=== PATIENT | female | born 1935 | race Two or more races ===

== ENCOUNTER → 2017-05-24 | Outpatient (CLI) | payer MEDICARE, MEDICAID ==
--- NOTE | 2017-05-24 15:25 | RADIOLOGY REPORT (SQ) ---
EXAM DESCRIPTION: U/S RETROPERITON (RENAL/AORTA) COMPLETED DATE/TIME: 05/24/2017 3:12 pm REASON FOR STUDY: ABN KIDNEY FUNCTION R94.4 ABNORMAL RESULTS OF KIDNEY FUNCTION STUDIES COMPARISON: None. TECHNIQUE: Dynamic and static grayscale images acquired of the kidneys and bladder and recorded on P ACS. Additional selected color Doppler and spectral images recorded. LIMITATIONS: None. FINDINGS: RIGHT KIDNEY: 7 cm in length with diffuse cortical thinning and mild increased echogenicit y. No solid or suspicious masses. No hydronephrosis. No calcifications. LEFT KIDNEY: 7 cm in length with diffuse cortical thinning and mild increased echogenicity. No solid or suspicious masses. No hydronephrosis. No calcifications. BLADDER: No masses. OTHER FINDINGS: No other significant finding. IMPRESSION: Small kidneys with diffuse cortical thinning and increased echogenicity TECHNICAL DOCUMENTATION: JOB ID: [id number] [employer]- All Rights Reserved
== END ==
LOC: RAD 15:08
PROVIDERS: ATTEND Internal Medicine
DX: R94.4 Abnormal results of kidney function studies (principal)
CPT/HCPCS: 76770

== ENCOUNTER → 2017-09-16 | Outpatient (CLI) | payer MEDICARE, MEDICAID ==
--- NOTE | 2017-09-16 17:17 | RADIOLOGY REPORT (SQ) ---
EXAM DESCRIPTION: LUMBAR SPINE COMPLETE COMPLETED DATE/TIME: 09/16/2017 4:39 pm REASON FOR STUDY: LOW BACK PAIN M54.5 LOW BACK PAIN COMPARISON: None. NUMBER OF VIEWS: Five views including obliques. TECHNIQUE: AP, lateral, oblique, and sacral radiographic images acquired of the lumbar spine. LIMITATIONS: None. FINDINGS: MINERALIZATION: Normal. SEGMENTATION: Normal. No transitional anatomy. ALIGNMENT: Minimal convex right curve. Minimal grade 1 listhesis is suggested at L4-5 and possibly L 5-S1. VERTEBRAE: Maintained height. No fracture or worrisome bone lesion. DISCS: Mild disc space narrowing at several levels. Most pronounced at L1-2. No bulky osteophytes. POSTERIOR ELEMENTS: Lower lumbar facet degenerative overgrowth. No pars defect, fracture or bone les ion evident. HARDWARE: None in the spine. PARASPINAL SOFT TISSUES: Moderate stool. No paraspinal pathology otherwise suggested. PELVIS: Intact as visualized. No fractures or worrisome bone lesions. SI joints intact. OTHER: No other significant finding. IMPRESSION: Lumbar spondylosis. No fracture or worrisome bone lesion. TECHNICAL DOCUMENTATION: JOB ID: [id number] [employer]- All Rights Reserved
== END ==
LOC: OD 16:01
PROVIDERS: ATTEND Internal Medicine
DX: M54.5 Low back pain (principal); M47.896 Other spondylosis, lumbar region
CPT/HCPCS: 72110

== ENCOUNTER → 2017-11-13 | Outpatient (CLI) | payer MEDICARE, MEDICAID ==
--- NOTE | 2017-11-13 15:49 | RADIOLOGY REPORT (SQ) ---
EXAM DESCRIPTION: CT ABD/PELVIS NO ORAL OR IV COMPLETED DATE/TIME: 11/13/2017 1:55 pm REASON FOR STUDY: PERIUMBILIC SWELLING, MASS OR LUMP (R19.05) R19.05 PERIUMBILIC SWELLING, MASS OR LUMP COMPARISON: Lumbar spine films 09/16/2017 TECHNIQUE: CT scan of the abdomen and pelvis performed without intravenous or oral contrast. Images reviewed with lung, soft tissue, and bone windows. Reconstructed coronal and sagittal MPR images revi ewed. All images stored on PACS. All CT scanners at this facility use dose modulation, iterative reconstruction, and/or weight based d osing when appropriate to reduce radiation dose to as low as reasonably achievable (ALARA). [facility]: Dose Right [facility]: CareDose [facility]: Dose Right [facility]: Teradose 4D [facility]: Smart [employer] RADIATION DOSE: CT Rad equipment meets quality standard of care and radiation dose reduction techniq ues were employed. CTDIvol: 6.3 mGy. DLP: 294 mGy-cm.mGy. LIMITATIONS: None. FINDINGS: The patient has a small fat containing umbilical hernia best shown on sagittal reconstruct ion image 41. LOWER CHEST: Aortic valve replacement, calcified coronary arteries and mitral annulus. Trace pericar dial effusion. Mild cardiomegaly. Lung bases are clear. NON-CONTRASTED LIVER, SPLEEN, ADRENALS: Evaluation limited by lack of IV contrast. No identified sign ificant masses. PANCREAS: No masses. No peripancreatic inflammatory changes. GALLBLADDER: Gallstones. No inflammatory changes to suggest cholecystitis. RIGHT KIDNEY AND URETER: No suspicious masses. Assessment limited by lack of IV contrast. Tiny 2 mm right midpole intrarenal nonobstructive stone. No hydronephrosis or hydroureter. LEFT KIDNEY AND URETER: No suspicious masses. Assessment limited by lack of IV contrast. No signifi cant calcifications. No hydronephrosis or hydroureter. AORTA AND RETROPERITONEUM: No aneurysm. No retroperitoneal masses or adenopathy. BOWEL AND PERITONEAL CAVITY: There is a 7 cm long segment of wall thickening, luminal narrowing and s urrounding stranding in the adjacent pericolic fat along the distal transverse colon, best shown on c oronal images 25-30 and sagittal images 54-60. This could represent a short segment of colitis. Wal l thickening and luminal narrowing could be seen in malignancy. Consider colonoscopy for further winston luation. Descending colon diverticuli without CT signs of acute diverticulitis. No CT evidence of bowel obstr uction or free intraperitoneal air or fluid. APPENDIX: Normal. PELVIS, BLADDER, AND ABDOMINAL WALL:No abnormal masses. No free fluid. Bladder normal. Post hysterec pierre BONES: Subacute L2 upper endplate compression with 25% loss of height, new compared to plain films fr om 09/16/2017 OTHER: No other significant finding. IMPRESSION: Small umbilical hernia Short segment of colon wall thickening and luminal narrowing, distal transverse colon. Although this could represent inflammatory change, this could also represent a colon malignancy. Upper endplate L2 subacute compression deformity COMMENT: Quality ID # [id number]: Final reports with documentation of one or more dose reduction techniques (e.g., Automated exposure control, adjustment of the mA and/or kV according to patient size, use of iterative reconstruction technique) TECHNICAL DOCUMENTATION: JOB ID: [id number] [employer]- All Rights Reserved Reading location - IP/workstation name: [email or web address]
== END ==
LOC: RAD 13:32
PROVIDERS: ATTEND Internal Medicine
DX: K42.9 Umbilical hernia without obstruction or gangrene (principal); K57.30 Diverticulosis of large intestine without perforation or abscess without bleeding
CPT/HCPCS: 74176

== ENCOUNTER 2018-02-18 15:23 | Day surgery (SDC) | payer MEDICARE, MEDICAID ==
[2018-02-18] MEDS ORDERED: ONDANSETRON HCL INJ/PF 4 MG/2 ML SDV ONE (15:49)
[2018-02-18] MEDS ORDERED: DIPHENHYDRAMINE HCL 50 MG/ML VIAL ONE (15:49)
[2018-02-18] MEDS ORDERED: NALOXONE HCL INJ/PF 0.4 MG/1 ML SDV ONE (15:50)
[2018-02-18] MEDS ORDERED: FLUMAZENIL INJ 0.5 MG/5 ML VIAL ONE (15:51)
[2018-02-18] MEDS ORDERED: GLUCAGON,HUMAN RECOMB 1 MG INJ ONE (15:51)
[2018-02-18] MEDS ORDERED: EPINEPHRINE INJ 1 MG/10 ML DISP.SYRIN ONE (15:51)
[2018-02-18] MEDS: MIDAZOLAM 2 MG/2 ML INJ ONE ×3 (16:34→16:55)
[2018-02-18] MEDS: FENTANYL CITRATE INJ/PF 100 MCG/2 ML AMPUL ONE ×2 (16:42→17:05)
--- NOTE | 2018-02-18 17:35 | Operative Report ---
Operative Report DATE OF SURGERY: 02/18/18 Operative Report: Pre-op diagnosis: History of ischemic colitis and stricture Post-op diagnosis: 1. Transverse colon stricture status post dilation 2. Left-sided diverticulosis Surgery: Colonoscopy to ascending colon with balloon dilation Medications: Versed 2mg, Fentanyl 75mcg IV push Tissue removed: None Procedure: After informed consent obtained from patient, conscious sedation was achieved. A digital rectal examination was performed and this was unremarkable. The upper endoscope was inserted into the rectum and advanced to the mid ascending colon. The mucosa was examined into details as the colonoscope was slowly pulled out of the patient. The endoscope was retroflexed in the rectum. Patient tolerated the procedure well. Findings I could not advance to the cecum due to redundancy and use of an EGD scope. Patient had multiple diverticuli with spasm in the sigmoid colon. Ascending colon: Normal Transverse colon: The stricture was identified in the mid to distal transverse colon with no evidence of active colitis. There was scarring noted in the transverse colon and the descending colon presumably from previous ischemic colitis. There was minimal difficulty passing the 9 mm though EGD scope. The stricture was then dilated with the balloon up to 11 mm. Descending colon: Multiple diverticuli Sigmoid colon: Multiple diverticuli with spasm and redundant colon Rectum: Normal except for internal hemorrhoids Plan: Keep patient on a low residue diet. OPERATION: .
[2018-02-18 18:37] VITALS: BP 152/50
== END 2018-02-18 18:30 | disposition home or self-care (01) ==
LOC: END 15:23
PROVIDERS: ATTEND Internal Medicine Gastroenterology
PROC: 0D7L8ZZ Dilation of Transverse Colon, Via Natural or Artificial Opening Endoscopic (ICD-10-PCS; principal; 2018-02-18 15:30)
DX: K56.699 Other intestinal obstruction unspecified as to partial versus complete obstruction (principal); K57.30 Diverticulosis of large intestine without perforation or abscess without bleeding; K58.9 Irritable bowel syndrome, unspecified; K64.8 Other hemorrhoids; E11.9 Type 2 diabetes mellitus without complications; Z95.2 Presence of prosthetic heart valve; Z86.73 Personal history of transient ischemic attack (TIA), and cerebral infarction without residual deficits
CPT/HCPCS: 45378; 82962; 45386; C1726; J2250; J3010; J0171; J1200; J1610; J2310; J2405; J3490

== ENCOUNTER 2018-05-13 18:08 | Inpatient (IN) | payer MEDICARE, MEDICAID ==
--- NOTE | 2018-05-13 18:33 | ER Document Report ---
ED General - General Chief Complaint: S/S of Possible Stroke Stated Complaint: WEAKNESS Time Seen by Provider: 05/13/18 18:32 Notes: Patient is a 83-year-old female that presents to the emergency department for chief complaint of right arm weakness. History provided by both the patient and the patient's daughter is at bedside. According to the daughter she was last seen normal around 11 or 12 this morning, she ate her breakfast, and that she went outside. And then around 130 or 2 PM, she told her daughter that she was feeling weak and she could not lift both her arms. She went to check on her , and she in fact was having difficulty lifting both her arms. 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 She called 911 at that time , EMS arrived, and at that time her symptoms seemed improved, they did give the option to bring her to the emergency department however the patient elected to stay home. The patient then had a recurrence of weakness in her right hand, and was having difficulty eating her dinner so they decided to bring her to the emergency department. She does have a history of diabetes and hypertension, denies history of strokes or TIAs in the past. She did not have any slurred speech or difficulty speaking, weakness in her leg, or facial droop. At this time she denies having any headaches, chest pain, shortness of breath, nausea, vomiting or visual changes. Past Medical History: Diabetes mellitus, hypertension, aortic stenosis status post TAVR Past Surgical History: T AVR, hysterectomy Social History: Denies tobacco, alcohol or drug use Family History: Reviewed and noncontributory for presenting illness Allergies: Reviewed, see documented allergy list. REVIEW OF SYSTEMS: Unless otherwise stated in this report the patient's positive and negative responses for review of systems for constitutional, eyes, ENT, cardiovascular, respiratory, gastrointestinal, neurological, genitourinary, musculoskeletal, and integumentary systems and related systems to the presenting problem are either as stated in the HPI or were not pertinent or were negative for the symptoms and/or complaints related to the presenting medical problem. PHYSICAL EXAMINATION: Vital signs reviewed, nursing noted reviewed. GENERAL: Elderly female, and in no acute distress. HEAD: Atraumatic, normocephalic. EYES: Eyes appear normal, extraocular movements intact, sclera anicteric, conjunctiva are normal. ENT: nares patent, oropharynx clear without exudates. Moist mucous membranes. NECK: Normal range of motion, supple without lymphadenopathy LUNGS: Breath sounds clear to auscultation bilaterally and equal. No wheezes rales or rhonchi. HEART: Regular rate and rhythm without murmurs ABDOMEN: Soft, nontender, normoactive bowel sounds. No rebound, guarding, or rigidity. No masses appreciated. EXTREMITIES: Nontender, good range of motion, no pitting or edema. 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 No facial droop, no aphasia, no dysarthria, visual ryan intact, no gaze palsies. Moves all extremities spontaneously Motor and sensory grossly intact on exam. PSYCH: Normal mood, normal affect. SKIN: Warm, Dry, normal turgor, no rashes or lesions noted on exposed skin TRAVEL OUTSIDE OF THE [place] IN LAST 30 DAYS: No - Related Data Allergies/Adverse Reactions: No Known Allergies Allergy (Verified 02/18/18 15:44) Past Medical History - Social History Smoking Status: Never Smoker Family History: Reviewed & Not Pertinent - Past Medical History Cardiac Medical History: Denies: Hx Coronary Artery Disease, Hx Heart Attack, Hx Hypertension Pulmonary Medical History: Denies: Hx Asthma, Hx Bronchitis, Hx COPD, Hx Pneumonia Neurological Medical History: Denies: Hx Cerebrovascular Accident, Hx Seizures GI Medical History: Denies: Hx Hepatitis, Hx Hiatal Hernia, Hx Ulcer Musculoskeletal Medical History: Reports Hx Arthritis Infectious Medical History: Denies: Hx Hepatitis Past Surgical History: Reports: Hx Hysterectomy. Denies: Hx Mastectomy, Hx Open Heart Surgery, Hx Pacemaker - Immunizations Hx Diphtheria, Pertussis, Tetanus Vaccination: No Hx Pneumococcal Vaccination: 05/12/17 Physical Exam - Vital signs Vitals: Temp Pulse Resp BP Pulse Ox 97.5 F 64 20 186/69 H 100 05/13/18 18:15 05/13/18 18:15 05/13/18 18:15 05/13/18 18:15 05/13/18 18:15 Course - Re-evaluation Re-evalutation: Patient seen and examined vital signs reviewed. Laboratory data and imaging were ordered as appropriate for the patient's presenting symptoms and complaint, with consideration of any critical or life threatening conditions that may be associated with their obtained history and exam as noted above. Patient was treated with aspirin Results were reviewed when available and demonstrated CT negative for acute intracranial hemorrhage, or large CVA, blood work demonstrated mild leukocytosis , likely acute phase stress reaction, she had borderline hyperkalemia, most noted was the patient had a troponin of 0.117, will trend this, and advised the admitting physician. The patient was re-evaluated and was stable, no further neurological deficits Evaluation was most consistent with acute CVA, with right hand weakness, The patient is not a TPA candidate given that she was last seen normal around 11 AM this morning, and her symptoms are very mild, and improving. Results were discussed with the patient at this point after careful consideration I feel that that patient should be admitted to the hospital. This was discussed with the patient that it is in the best interest for their care to be admitted for further evaluation and management. Patient agreed with this plan of care. A call was placed to the admitted physician, Dr. Rodrigues who graciously accepted the patient onto their service. *Note is created using voice recognition software and may contain spelling, syntax or grammatical errors. Laboratory 05/13/18 05/13/18 05/13/18 18:37 18:37 18:37 WBC 9.3 RBC 4.32 Hgb 11.5 L Hct 35.3 L MCV 82 MCH 26.5 L MCHC 32.4 RDW 15.8 H Plt Count 219 Seg Neutrophils % 56.1 Lymphocytes % 33.8 Monocytes % 6.0 Eosinophils % 3.3 Basophils % 0.8 Absolute Neutrophils 5.2 Absolute Lymphocytes 3.1 Absolute Monocytes 0.6 Absolute Eosinophils 0.3 Absolute Basophils 0.1 PT 13.7 INR 1.00 APTT 29.1 Sodium 140.7 Potassium 5.3 H Chloride 103 Carbon Dioxide 28 Anion Gap 10 BUN 23 H Creatinine 1.42 H Est GFR ( Amer) 43 L Est GFR (Non-Af Amer) 35 L Glucose 109 POC Glucose Calcium 9.7 Total Bilirubin 0.6 Direct Bilirubin 0.4 Neonat Total Bilirubin Not Reportable Neonat Direct Bilirubin Not Reportable Neonat Indirect Bili Not Reportable AST 23 ALT 21 Alkaline Phosphatase 69 Creatine Kinase 64 CK-MB (CK-2) Troponin I Total Protein 8.5 H Albumin 4.3 05/13/18 05/13/18 18:37 18:42 WBC RBC Hgb Hct MCV MCH MCHC RDW Plt Count Seg Neutrophils % Lymphocytes % Monocytes % Eosinophils % Basophils % Absolute Neutrophils Absolute Lymphocytes Absolute Monocytes Absolute Eosinophils Absolute Basophils PT INR APTT Sodium Potassium Chloride Carbon Dioxide Anion Gap BUN Creatinine Est GFR ( Amer) Est GFR (Non-Af Amer) Glucose POC Glucose 98 Calcium Total Bilirubin Direct Bilirubin Neonat Total Bilirubin Neonat Direct Bilirubin Neonat Indirect Bili AST ALT Alkaline Phosphatase Creatine Kinase CK-MB (CK-2) 1.18 Troponin I 0.117 Total Protein Albumin Chest X-Ray 05/13/18 18:17 IMPRESSION: NO ACUTE RADIOGRAPHIC FINDING IN THE CHEST. Head CT 05/13/18 18:17 IMPRESSION: MILD CHRONIC CHANGES OF ATROPHY AND MICROVASCULAR ISCHEMIA. NO ACUTE PROCESS. EVIDENCE OF ACUTE STROKE: NO. - Vital Signs Vital signs: Temp Pulse Resp BP Pulse Ox 97.6 F 58 L 20 128/62 H 100 05/13/18 23:22 05/14/18 02:00 05/14/18 00:00 05/14/18 00:00 05/14/18 00:00 - Laboratory Result Diagrams: 05/13/18 18:37 05/13/18 18:37 Laboratory results interpreted by me: 05/13/18 05/13/18 18:37 18:37 Hgb 11.5 L Hct 35.3 L MCH 26.5 L RDW 15.8 H Potassium 5.3 H BUN 23 H Creatinine 1.42 H Est GFR ( Amer) 43 L Est GFR (Non-Af Amer) 35 L Total Protein 8.5 H - EKG Interpretation by Me Additional EKG results interpreted by me: EKG demonstrates sinus bradycardia with a ventricular rate of 57 bpm with left axis deviation, normal intervals, there are T wave inversions in lead I and aVL , no ST changes, no prior EKG for comparison. Discharge - Discharge Clinical Impression: Acute CVA (cerebrovascular accident), Right hand weakness Condition: Stable Disposition: ADMITTED INPATIENT Admitting Provider: [facility] Unit Admitted: Telemetry
--- NOTE | 2018-05-13 18:35 | RADIOLOGY REPORT (SQ) ---
EXAM DESCRIPTION: CHEST SINGLE VIEW COMPLETED DATE/TIME: 05/13/2018 6:22 pm REASON FOR STUDY: STROKE LIKE SYMPTOMS COMPARISON: None. EXAM PARAMETERS: NUMBER OF VIEWS: One view. TECHNIQUE: Single frontal radiographic view of the chest acquired. RADIATION DOSE: NA LIMITATIONS: None. FINDINGS: LUNGS AND PLEURA: No opacities, masses or pneumothorax. No pleural effusion. MEDIASTINUM AND HILAR STRUCTURES: No masses. Contour normal. HEART AND VASCULAR STRUCTURES: Vascular stent. No evidence for failure. BONES: No acute findings. HARDWARE: None in the chest. OTHER: No other significant finding. IMPRESSION: NO ACUTE RADIOGRAPHIC FINDING IN THE CHEST. TECHNICAL DOCUMENTATION: JOB ID: [id number] [employer]- All Rights Reserved Reading location - IP/workstation name: [email or web address]
--- NOTE | 2018-05-13 18:37 | RADIOLOGY REPORT (SQ) ---
EXAM DESCRIPTION: CT HEAD WITHOUT COMPLETED DATE/TIME: 05/13/2018 6:27 pm REASON FOR STUDY: STROKE LIKE SYMPTOMS COMPARISON: None. TECHNIQUE: Axial images acquired through the brain without intravenous contrast. Images reviewed wi th bone, brain and subdural windows. Additional sagittal and coronal reconstructions were generated. Images stored on PACS. All CT scanners at this facility use dose modulation, iterative reconstruction, and/or weight based d osing when appropriate to reduce radiation dose to as low as reasonably achievable (ALARA). [facility]: Dose Right [facility]: CareDose [facility]: Dose Right [facility]: Teradose 4D [facility]: Smart [employer] RADIATION DOSE: CT Rad equipment meets quality standard of care and radiation dose reduction techniq ues were employed. CTDIvol: 53.2 mGy. DLP: 1044 mGy-cm. mGy. LIMITATIONS: None. FINDINGS: VENTRICLES: Prominent. CEREBRUM: No masses. No hemorrhage. No midline shift. Areas of low density in the white matter mos t likely due to chronic micro-vascular ischemic change. No evidence for acute infarction. CEREBELLUM: No masses. No hemorrhage. No alteration of density. No evidence for acute infarction. EXTRAAXIAL SPACES: Mild age-related involutional change. No fluid collections. No masses. ORBITS AND GLOBE: No intra- or extraconal masses. Normal contour of globe without masses. CALVARIUM: No fracture. PARANASAL SINUSES: No fluid or mucosal thickening. SOFT TISSUES: No mass or hematoma. OTHER: No other significant finding. IMPRESSION: MILD CHRONIC CHANGES OF ATROPHY AND MICROVASCULAR ISCHEMIA. NO ACUTE PROCESS. EVIDENCE OF ACUTE STROKE: NO. TECHNICAL DOCUMENTATION: JOB ID: [id number] Quality ID # [id number]: Final reports with documentation of one or more dose reduction techniques (e.g., Au tomated exposure control, adjustment of the mA and/or kV according to patient size, use of iterative reconstruction technique) 2010 [employer]- All Rights Reserved Reading location - IP/workstation name: [email or web address]
[2018-05-13 18:46] LABS: ABSOLUTE BASOPHILS # (AUTO) 0.1 10^3/uL (0.0-0.2); ABSOLUTE EOSINOPHILS # (AUTO) 0.3 10^3/uL (0.0-0.6); ABSOLUTE LYMPHOCYTES (AUTO) 3.1 10^3/uL (0.5-4.7); ABSOLUTE MONOCYTES (AUTO) 0.6 10^3/uL (0.1-1.4); ABSOLUTE NEUT (AUTO) 5.2 10^3/uL (1.7-8.2); BASOPHILS % (AUTO) 0.8 % (0-2); EOSINOPHILS % (AUTO) 3.3 % (0-6); HEMATOCRIT 35.3 % (36.0-47.0); HEMOGLOBIN 11.5 g/dL (12.0-15.5); LYMPHOCYTES % (AUTO) 33.8 % (13-45); MEAN CORPUSCULAR HEMOGLOBIN 26.5 pg (27.0-33.4); MEAN CORPUSCULAR HGB CONC 32.4 g/dL (32.0-36.0); MEAN CORPUSCULAR VOLUME 82 fl (80-97); PLATELET COUNT 219 10^3/uL (150-450); RED BLOOD COUNT 4.32 10^6/uL (3.72-5.28); RED CELL DISTRIBUTION WIDTH 15.8 % (11.5-14.0); SEGMENTED NEUTROPHILS % (AUTO) 56.1 % (42-78); TOTAL CELLS COUNTED % (AUTO) 100 %; WHITE BLOOD COUNT 9.3 10^3/uL (4.0-10.5)
[2018-05-13 18:48] LABS: PARTIAL THROMBOPLASTIN TIME 29.1 SEC (23.5-35.8); PROTHROMBIN TIME 13.7 SEC (11.4-15.4)
[2018-05-13 19:06] LABS: ALANINE AMINOTRANSFERASE 21 U/L (9-52); ALBUMIN 4.3 g/dL (3.5-5.0); ALKALINE PHOSPHATASE 69 U/L (38-126); ANION GAP 10 (5-19); ASPARTATE AMINO TRANSFERASE 23 U/L (14-36); BILIRUBIN,DIRECT 0.4 mg/dL (0.0-0.4); BILIRUBIN,TOTAL 0.6 mg/dL (0.2-1.3); BLOOD UREA NITROGEN 23 mg/dL (7-20); CALCIUM 9.7 mg/dL (8.4-10.2); CARBON DIOXIDE 28 mmol/L (22-30); CHLORIDE 103 mmol/L (98-107); CREATINE KINASE 64 U/L (30-135); GLUCOSE 109 mg/dL (75-110); POTASSIUM 5.3 mmol/L (3.6-5.0); SODIUM 140.7 mmol/L (137-145); TOTAL PROTEIN 8.5 g/dL (6.3-8.2)
[2018-05-13 19:18] LABS: CREATINE KINASE MB 1.18 ng/mL (<4.55)
[2018-05-13 19:22] LABS: TROPONIN I 0.117 ng/mL
[2018-05-13] MEDS ORDERED: ASPIRIN 81 MG TABLET, CHEWABLE PO ONE (19:24)
--- NOTE | 2018-05-13 19:40 | EKG REPORT ---
SEVERITY:- ABNORMAL ECG - SINUS RHYTHM LEFT AXIS DEVIATION LVH WITH SECONDARY REPOLARIZATION ABNORMALITY : Confirmed by: Annemarie Montes 13-May-2018 19:39:34
[2018-05-13 21:48] LABS: INTERNATIONAL RATION (INR) 0.98; PROTHROMBIN TIME 13.5 SEC (11.4-15.4)
[2018-05-13 21:49] LABS: PARTIAL THROMBOPLASTIN TIME 29.1 SEC (23.5-35.8)
[2018-05-13] MEDS ORDERED: GLUCAGON,HUMAN RECOMB 1 MG INJ IM PRN (21:49)
[2018-05-13] MEDS ORDERED: DEXTROSE 40% GEL 15 GM TUBE PO PRN ×2 (21:49)
[2018-05-13] MEDS ORDERED: DEXTROSE 50%-WATER 25 GM/50 ML DISP.SYRIN IV PRN ×2 (21:49)
[2018-05-13 22:12] LABS: CREATINE KINASE MB 1.08 ng/mL (<4.55); TROPONIN I 0.11 ng/mL
[2018-05-13] MEDS: ASPIRIN/DIPYRIDAMOLE 25-200 MG 1 CAP.SR CPMP.12HR PO SCH (22:56)
[2018-05-13] MEDS: SIMVASTATIN 40 MG TABLET PO SCH (22:56)
[2018-05-13] MEDS: HEPARIN SOD (PORCINE) 5,000 UNIT/ML 1 ML SYRINGE SUBCUT SCH (22:56)
[2018-05-13] MEDS: NORMAL SALINE 1000 ML 1,000 ML IV PRN (23:06)
--- NOTE | 2018-05-13 23:29 | RADIOLOGY REPORT (SQ) ---
Scherer scale, color flow, and spectral Doppler was performed of the carotid arteries bilaterally. HISTORY: Carotid stenosis, CVA. Right carotid plaque characterization: Mild scattered soft plaque. 1. CCA peak systolic velocity: 76 cm/sec 2. CCA end-diastolic velocity: 15 cm/sec 3. ICA peak systolic velocity: 63 cm/sec 4. ICA end-diastolic velocity: 10 cm/sec 5. Systolic ratio: 0.8 6. Vertebral artery flow: Antegrade and appears normal. Left carotid plaque characterization: Mild scattered plaque. 1. CCA peak systolic velocity: 62 cm/sec 2. CCA end-diastolic velocity: 10 cm/sec 3. ICA peak systolic velocity: 60 cm/sec 4. ICA end-diastolic velocity: 11 cm/sec 5. Systolic ratio: 0.9 6. Vertebral artery flow: Antegrade and appears normal. IMPRESSION: Mild scattered plaque. No evidence for severe stenosis.
[2018-05-14 00:56] LABS: ARTERIAL BLOOD BASE EXCESS 1.1 mmol/L; ARTERIAL BLOOD H2CO3 1.21 mmol/L (1.05-1.35); ARTERIAL BLOOD HCO3 25.6 mmol/L (20-24); ARTERIAL BLOOD O2 SATURATION 95.8 % (94-98); ARTERIAL BLOOD PCO2 40.1 mmHg (35-45); ARTERIAL BLOOD PH 7.42 (7.35-7.45); ARTERIAL BLOOD PO2 78.2 mmHg (80-100); ARTERIAL BLOOD TOTAL CO2 26.8 mmol/L (21-25)
[2018-05-14 01:13] LABS: ARTERIAL BLOOD FIO2 21%
[2018-05-14 01:17] LABS: APPEARANCE,URINE SLIGHTLY-CLOUDY; BILIRUBIN,URINE NEGATIVE (NEGATIVE); COLOR,URINE YELLOW; GLUCOSE, URINE NEGATIVE (NEGATIVE); KETONES,URINE NEGATIVE (NEGATIVE); LEUKOCYTE ESTERASE,URINE NEGATIVE (NEGATIVE); NITRITE,URINE NEGATIVE (NEGATIVE); PROTEIN,URINE 30 mg/dL (NEGATIVE); UROBILINOGEN,URINE NEGATIVE mg/dL (<2.0)
[2018-05-14 03:20] LABS: ABSOLUTE BASOPHILS # (AUTO) 0.1 10^3/uL (0.0-0.2); ABSOLUTE EOSINOPHILS # (AUTO) 0.3 10^3/uL (0.0-0.6); ABSOLUTE LYMPHOCYTES (AUTO) 3.3 10^3/uL (0.5-4.7); ABSOLUTE MONOCYTES (AUTO) 0.4 10^3/uL (0.1-1.4); ABSOLUTE NEUT (AUTO) 3.9 10^3/uL (1.7-8.2); BASOPHILS % (AUTO) 0.8 % (0-2); EOSINOPHILS % (AUTO) 3.8 % (0-6); HEMATOCRIT 32.8 % (36.0-47.0); HEMOGLOBIN 10.7 g/dL (12.0-15.5); LYMPHOCYTES % (AUTO) 41.3 % (13-45); MEAN CORPUSCULAR HEMOGLOBIN 26.6 pg (27.0-33.4); MEAN CORPUSCULAR HGB CONC 32.7 g/dL (32.0-36.0); MEAN CORPUSCULAR VOLUME 81 fl (80-97); MONOCYTES % (AUTO) 5.3 % (3-13); PLATELET COUNT 179 10^3/uL (150-450); RED BLOOD COUNT 4.03 10^6/uL (3.72-5.28); RED CELL DISTRIBUTION WIDTH 15.5 % (11.5-14.0); SEGMENTED NEUTROPHILS % (AUTO) 48.8 % (42-78); TOTAL CELLS COUNTED % (AUTO) 100 %
[2018-05-14 03:42] LABS: ALANINE AMINOTRANSFERASE 15 U/L (9-52); ALBUMIN 3.4 g/dL (3.5-5.0); ALKALINE PHOSPHATASE 60 U/L (38-126); ANION GAP 6 (5-19); ASPARTATE AMINO TRANSFERASE 18 U/L (14-36); BILIRUBIN,DIRECT 0.4 mg/dL (0.0-0.4); BILIRUBIN,TOTAL 0.4 mg/dL (0.2-1.3); BLOOD UREA NITROGEN 25 mg/dL (7-20); CALCIUM 9.1 mg/dL (8.4-10.2); CARBON DIOXIDE 26 mmol/L (22-30); CHLORIDE 107 mmol/L (98-107); CHOLESTEROL 214.66 mg/dL (0-200); GLUCOSE 126 mg/dL (75-110); POTASSIUM 4.5 mmol/L (3.6-5.0); SODIUM 138.7 mmol/L (137-145); TOTAL PROTEIN 6.7 g/dL (6.3-8.2); TRIGLYCERIDES 148 mg/dL (<150)
[2018-05-14 03:53] LABS: CREATINE KINASE MB 1.04 ng/mL (<4.55); DIRECT LDL 137 mg/dL (<100)
[2018-05-14 04:02] LABS: TROPONIN I 0.111 ng/mL
[2018-05-14] MEDS: HEPARIN SOD (PORCINE) 5,000 UNIT/ML 1 ML SYRINGE SUBCUT SCH ×3 (06:48→22:44)
[2018-05-14] MEDS: ASPIRIN/DIPYRIDAMOLE 25-200 MG 1 CAP.SR CPMP.12HR PO SCH ×2 (09:22→22:44)
[2018-05-14 10:33] LABS: CREATINE KINASE MB 1.05 ng/mL (<4.55); TROPONIN I 0.118 ng/mL
--- NOTE | 2018-05-14 11:12 | EKG REPORT ---
SEVERITY:- ABNORMAL ECG - SINUS RHYTHM LEFT AXIS DEVIATION LVH WITH SECONDARY REPOLARIZATION ABNORMALITY : Confirmed by: Annemarie Montes 14-May-2018 11:11:47
--- NOTE | 2018-05-14 12:10 | RADIOLOGY REPORT (SQ) ---
EXAM DESCRIPTION: MRI HEAD WITHOUT COMPLETED DATE/TIME: 05/14/2018 11:55 am REASON FOR STUDY: CVA COMPARISON: CT brain 05/13/2018 TECHNIQUE: Multiplanar imaging includes non-contrasted T1, T2, FLAIR, and diffusion with ADC map seq uences. Images stored on PACS. LIMITATIONS: None. FINDINGS: ANATOMY: No developmental anomalies. Normal vascular flow voids. Pituitary fossa normal. CSF SPACES: Normal in size and contour. No hemorrhage. CEREBRUM: Diffusion-weighted images are positive for punctate nonhemorrhagic infarcts along the left posterior frontal cortex and subcortical white matter along the motor strip and along the left fronta l lobe perisylvian region. These are best shown on diffusion images 15-20. Elsewhere, there is extensive small vessel ischemic change throughout the hemispheres with multiple o ld lacunar infarcts in the basal ganglia and right and left thalamus. POSTERIOR FOSSA: Mild mid pontine chronic small vessel ischemic change. No hemorrhage. No edema, mass es or mass effect. Internal auditory canals, cerebello-pontine angles, mastoids normal. DIFFUSION IMAGING: Diffusion-weighted images are positive for punctate nonhemorrhagic infarcts along the left posterior frontal cortex and subcortical white matter along the motor strip and along the le ft frontal lobe perisylvian region. These are best shown on diffusion images 15-20. ORBITS: No masses. Globes normal. PARANASAL SINUSES: No fluid levels. Mucosa normal. Fluid left mastoid air cells OTHER: No other significant finding. IMPRESSION: Diffusion-weighted images are positive for punctate nonhemorrhagic infarct in the left M CA distribution along the motor strip and perisylvian frontal lobe EVIDENCE OF ACUTE STROKE: Yes TECHNICAL DOCUMENTATION: JOB ID: [id number] [employer]- All Rights Reserved Reading location - IP/workstation name: [email or web address]
--- NOTE | 2018-05-14 13:44 | Physician Advisory Note ---
Physician Advisor ProgressNote .: Pursuant to the plan for [facility], I have reviewed the medical record for this patient. Physician Advisor Statement: Please consider documenting, if you agree: 1. "Acute Lt-sided thrombotic [or embolic, or other etiology] MCA artery* CVA with cerebral infarction, with Rt dominant arm weakness, [resolved or improved or persistent] " Thanks! CK
--- NOTE | 2018-05-14 14:12 | PDOC H&P ---
History of Present Illness Admission Date/PCP: 05/13/18 19:10 ADRIANNA GÓMEZ MD History of Present Illness: TORRI ARCEO is a 83 year old female she has a history of type 2 diabetes mellitus poorly controlled, cognitive impairment, she came to the office with her daughter for evaluation of weakness of the right upper extremities, this symptom apparently started earlier in the day, the daughter stated that about lunchtime she felt too weak she could not lift her she was concerned, she has examined her mother there was loss of farm hand strength, she called 911, EMS arrived and his symptoms since improved, EMS gave the option of transfer to the emergency room for evaluation but they declined the option, the symptoms return then the opted to come to my office for evaluation. She came to the office for evaluation, she was examined in the office, there was weakness of the right upper extremities, the story was consistent with TIA with evolving CVA, she was referred to the ER for evaluation, in the emergency room CT head was done which came back negative subsequent MRI of the brain was done, it demonstrated diffuse weighted images positive for punctate nonhemorrhagic infarcts along the left posterior frontal cortex and subcortical white matter the left MCA distribution most likely embolic stroke. She has a history of severe aortic stenosis that was treated with transcatheter aortic valve replacement. She has no history of atrial fibrillation diagnosis that I know about Past Medical History Endocrine Medical History: Reports: Diabetes Mellitus Type 2 Musculoskeltal Medical History: Reports: Arthritis Psychiatric Medical History: Reports: Dementia Hematology: Reports: Anemia - resolved Past Surgical History Past Surgical History: Reports: Hysterectomy Social History Smoking Status: Never Smoker Frequency of Alcohol Use: None Hx Recreational Drug Use: No Drugs: None Hx Prescription Drug Abuse: No Family History Family History: Reviewed & Not Pertinent Parental Family History Reviewed: Yes Children Family History Reviewed: Yes Sibling(s) Family History Reviewed.: Yes Medication/Allergy Home Medications: Aspirin [Aspirin EC] 81 mg PO DAILY 02/18/18 Metformin HCl [Metformin HCl ER] 1,000 mg PO DAILY 05/13/18 Allergies/Adverse Reactions: No Known Allergies Allergy (Verified 02/18/18 15:44) Review of Systems Constitutional: ABSENT: chills, fever(s), headache(s), weight gain, weight loss Eyes: ABSENT: visual disturbances Ears: ABSENT: hearing changes Cardiovascular: ABSENT: chest pain, dyspnea on exertion, edema, orthropnea, palpitations Respiratory: ABSENT: cough, hemoptysis Gastrointestinal: ABSENT: abdominal pain, constipation, diarrhea, hematemesis, hematochezia, nausea, vomiting Genitourinary: ABSENT: dysuria, hematuria Musculoskeletal: ABSENT: joint swelling Integumentary: ABSENT: rash, wounds Neurological: PRESENT: focal weakness Psychiatric: ABSENT: anxiety, depression, homidical ideation, suicidal ideation Endocrine: ABSENT: cold intolerance, heat intolerance, menstrual abnormalities, polydipsia, polyuria Hematologic/Lymphatic: ABSENT: easy bleeding, easy bruising, lymphadenopathy Physical Exam Vital Signs: Temp Pulse Resp BP Pulse Ox 97.6 F 58 L 16 142/64 H 100 05/14/18 11:12 05/14/18 11:12 05/14/18 11:12 05/14/18 11:12 05/14/18 11:12 Intake & Output 05/13/18 05/14/18 05/15/18 06:59 06:59 06:59 Intake Total 200 237 Output Total 300 100 Balance -100 137 Weight 61 kg General appearance: PRESENT: no acute distress Head exam: PRESENT: atraumatic, normocephalic Eye exam: PRESENT: PERRLA Neck exam: PRESENT: full ROM Respiratory exam: PRESENT: clear to auscultation linda Cardiovascular exam: PRESENT: RRR, +S1, +S2 Pulses: PRESENT: normal dorsalis pedis pul, +2 pedal pulses bilateral Vascular exam: PRESENT: normal capillary refill GI/Abdominal exam: PRESENT: normal bowel sounds, soft Rectal exam: PRESENT: deferred Neurological exam: PRESENT: alert, motor sensory deficit - There is right sided hemiparesis Psychiatric exam: PRESENT: appropriate affect, normal mood Skin exam: PRESENT: dry, intact, warm Results Laboratory Results: 05/14/18 03:13 05/14/18 03:13 05/14/18 05/14/18 05/14/18 00:46 00:55 03:13 WBC 8.0 RBC 4.03 Hgb 10.7 L Hct 32.8 L MCV 81 MCH 26.6 L MCHC 32.7 RDW 15.5 H Plt Count 179 Seg Neutrophils % 48.8 Lymphocytes % 41.3 Monocytes % 5.3 Eosinophils % 3.8 Basophils % 0.8 Absolute Neutrophils 3.9 Absolute Lymphocytes 3.3 Absolute Monocytes 0.4 Absolute Eosinophils 0.3 Absolute Basophils 0.1 Carbonic Acid 1.21 HCO3/H2CO3 Ratio 21:1 ABG pH 7.42 ABG pCO2 40.1 ABG pO2 78.2 L ABG HCO3 25.6 H ABG O2 Saturation 95.8 ABG Base Excess 1.1 FiO2 21% Sodium Potassium Chloride Carbon Dioxide Anion Gap BUN Creatinine Est GFR ( Amer) Est GFR (Non-Af Amer) Glucose Calcium Total Bilirubin AST ALT Alkaline Phosphatase Total Protein Albumin Triglycerides Cholesterol LDL Cholesterol Direct VLDL Cholesterol HDL Cholesterol Urine Color YELLOW Urine Appearance SLIGHTLY-CLOUDY Urine pH 6.0 Ur Specific [place] 1.010 Urine Protein 30 H Urine Glucose (UA) NEGATIVE Urine Ketones NEGATIVE Urine Blood NEGATIVE Urine Nitrite NEGATIVE Ur Leukocyte Esterase NEGATIVE Urine WBC (Auto) 0 Urine RBC (Auto) 0 05/14/18 03:13 WBC RBC Hgb Hct MCV MCH MCHC RDW Plt Count Seg Neutrophils % Lymphocytes % Monocytes % Eosinophils % Basophils % Absolute Neutrophils Absolute Lymphocytes Absolute Monocytes Absolute Eosinophils Absolute Basophils Carbonic Acid HCO3/H2CO3 Ratio ABG pH ABG pCO2 ABG pO2 ABG HCO3 ABG O2 Saturation ABG Base Excess FiO2 Sodium 138.7 Potassium 4.5 Chloride 107 Carbon Dioxide 26 Anion Gap 6 BUN 25 H Creatinine 1.34 H Est GFR ( Amer) 46 L Est GFR (Non-Af Amer) 38 L Glucose 126 H Calcium 9.1 Total Bilirubin 0.4 AST 18 ALT 15 Alkaline Phosphatase 60 Total Protein 6.7 Albumin 3.4 L Triglycerides 148 Cholesterol 214.66 H LDL Cholesterol Direct 137 H VLDL Cholesterol 30.0 HDL Cholesterol 48 Urine Color Urine Appearance Urine pH Ur Specific [place] Urine Protein Urine Glucose (UA) Urine Ketones Urine Blood Urine Nitrite Ur Leukocyte Esterase Urine WBC (Auto) Urine RBC (Auto) 05/13/18 05/13/18 05/14/18 21:11 21:11 03:13 Creatine Kinase 60 63 CK-MB (CK-2) 1.08 Troponin I 0.110 05/14/18 05/14/18 05/14/18 03:13 09:40 09:40 Creatine Kinase 57 CK-MB (CK-2) 1.04 1.05 Troponin I 0.111 0.118 Impressions: Chest X-Ray 05/13/18 18:17 IMPRESSION: NO ACUTE RADIOGRAPHIC FINDING IN THE CHEST. Head CT 05/13/18 18:17 IMPRESSION: MILD CHRONIC CHANGES OF ATROPHY AND MICROVASCULAR ISCHEMIA. NO ACUTE PROCESS. EVIDENCE OF ACUTE STROKE: NO. Carotid Doppler Study 05/13/18 20:51 IMPRESSION: Mild scattered plaque. No evidence for severe stenosis. Head MRI 05/13/18 20:51 IMPRESSION: Diffusion-weighted images are positive for punctate nonhemorrhagic infarct in the left MCA distribution along the motor strip and perisylvian frontal lobe EVIDENCE OF ACUTE STROKE: Yes Assessment & Plan - Diagnosis (1) Acute ischemic left MCA stroke Is this a current diagnosis for this admission?: Yes Plan: Patient is admitted to be treated for CVA according to stroke protocol (2) Type 2 diabetes mellitus Qualifiers: Diabetes mellitus care home insulin use: without care home use Diabetes mellitus complication status: with neurologic complications Diabetes mellitus complication detail: with polyneuropathy Qualified Code(s): E11.42 - Type 2 diabetes mellitus with diabetic polyneuropathy Is this a current diagnosis for this admission?: Yes
--- NOTE | 2018-05-14 14:37 | PDOC PROGRESS REPORT ---
Subjective Progress Note for:: 05/14/18 Subjective:: Patient seen by the bedside she had a stroke yesterday with right-sided paralysis, predominantly in the right upper extremities. She was seen by physical therapy, the [facility] the carotid Doppler did not show any significant stenosis Reason For Visit: TIA/CVA Physical Exam Vital Signs: Temp Pulse Resp BP Pulse Ox 97.6 F 58 L 16 142/64 H 100 05/14/18 11:12 05/14/18 11:12 05/14/18 11:12 05/14/18 11:12 05/14/18 11:12 Intake & Output 05/13/18 05/14/18 05/15/18 06:59 06:59 06:59 Intake Total 200 237 Output Total 300 100 Balance -100 137 Weight 61 kg General appearance: PRESENT: no acute distress Eye exam: PRESENT: PERRLA Respiratory exam: PRESENT: clear to auscultation linda Cardiovascular exam: PRESENT: +S1, +S2 GI/Abdominal exam: PRESENT: soft Neurological exam: PRESENT: alert, motor sensory deficit - Right sided paralysis Results Laboratory Results: 05/14/18 03:13 05/14/18 03:13 05/14/18 05/14/18 05/14/18 00:46 00:55 03:13 WBC 8.0 RBC 4.03 Hgb 10.7 L Hct 32.8 L MCV 81 MCH 26.6 L MCHC 32.7 RDW 15.5 H Plt Count 179 Seg Neutrophils % 48.8 Lymphocytes % 41.3 Monocytes % 5.3 Eosinophils % 3.8 Basophils % 0.8 Absolute Neutrophils 3.9 Absolute Lymphocytes 3.3 Absolute Monocytes 0.4 Absolute Eosinophils 0.3 Absolute Basophils 0.1 Carbonic Acid 1.21 HCO3/H2CO3 Ratio 21:1 ABG pH 7.42 ABG pCO2 40.1 ABG pO2 78.2 L ABG HCO3 25.6 H ABG O2 Saturation 95.8 ABG Base Excess 1.1 FiO2 21% Sodium Potassium Chloride Carbon Dioxide Anion Gap BUN Creatinine Est GFR ( Amer) Est GFR (Non-Af Amer) Glucose Calcium Total Bilirubin AST ALT Alkaline Phosphatase Total Protein Albumin Triglycerides Cholesterol LDL Cholesterol Direct VLDL Cholesterol HDL Cholesterol Urine Color YELLOW Urine Appearance SLIGHTLY-CLOUDY Urine pH 6.0 Ur Specific [place] 1.010 Urine Protein 30 H Urine Glucose (UA) NEGATIVE Urine Ketones NEGATIVE Urine Blood NEGATIVE Urine Nitrite NEGATIVE Ur Leukocyte Esterase NEGATIVE Urine WBC (Auto) 0 Urine RBC (Auto) 0 05/14/18 03:13 WBC RBC Hgb Hct MCV MCH MCHC RDW Plt Count Seg Neutrophils % Lymphocytes % Monocytes % Eosinophils % Basophils % Absolute Neutrophils Absolute Lymphocytes Absolute Monocytes Absolute Eosinophils Absolute Basophils Carbonic Acid HCO3/H2CO3 Ratio ABG pH ABG pCO2 ABG pO2 ABG HCO3 ABG O2 Saturation ABG Base Excess FiO2 Sodium 138.7 Potassium 4.5 Chloride 107 Carbon Dioxide 26 Anion Gap 6 BUN 25 H Creatinine 1.34 H Est GFR ( Amer) 46 L Est GFR (Non-Af Amer) 38 L Glucose 126 H Calcium 9.1 Total Bilirubin 0.4 AST 18 ALT 15 Alkaline Phosphatase 60 Total Protein 6.7 Albumin 3.4 L Triglycerides 148 Cholesterol 214.66 H LDL Cholesterol Direct 137 H VLDL Cholesterol 30.0 HDL Cholesterol 48 Urine Color Urine Appearance Urine pH Ur Specific [place] Urine Protein Urine Glucose (UA) Urine Ketones Urine Blood Urine Nitrite Ur Leukocyte Esterase Urine WBC (Auto) Urine RBC (Auto) 05/13/18 05/13/18 05/14/18 21:11 21:11 03:13 Creatine Kinase 60 63 CK-MB (CK-2) 1.08 Troponin I 0.110 05/14/18 05/14/18 05/14/18 03:13 09:40 09:40 Creatine Kinase 57 CK-MB (CK-2) 1.04 1.05 Troponin I 0.111 0.118 Impressions: Chest X-Ray 05/13/18 18:17 IMPRESSION: NO ACUTE RADIOGRAPHIC FINDING IN THE CHEST. Head CT 05/13/18 18:17 IMPRESSION: MILD CHRONIC CHANGES OF ATROPHY AND MICROVASCULAR ISCHEMIA. NO ACUTE PROCESS. EVIDENCE OF ACUTE STROKE: NO. Carotid Doppler Study 05/13/18 20:51 IMPRESSION: Mild scattered plaque. No evidence for severe stenosis. Head MRI 05/13/18 20:51 IMPRESSION: Diffusion-weighted images are positive for punctate nonhemorrhagic infarct in the left MCA distribution along the motor strip and perisylvian frontal lobe EVIDENCE OF ACUTE STROKE: Yes Assessment & Plan - Diagnosis (1) Acute ischemic left MCA stroke Is this a current diagnosis for this admission?: Yes (2) Type 2 diabetes mellitus Qualifiers: Diabetes mellitus medical terminologist insulin use: without group home use Diabetes mellitus complication status: with neurologic complications Diabetes mellitus complication detail: with polyneuropathy Qualified Code(s): E11.42 - Type 2 diabetes mellitus with diabetic polyneuropathy Is this a current diagnosis for this admission?: Yes - Plan Summary Plan Summary: Continue anti-ischemic therapy
[2018-05-14] MEDS: INSULIN LISPRO 100 UNIT/ML 3 ML VIAL SUBCUT PRN ×2 (18:35→22:44)
[2018-05-14] MEDS: SIMVASTATIN 40 MG TABLET PO SCH (22:44)
[2018-05-15] MEDS: NORMAL SALINE 1000 ML 1,000 ML IV PRN (04:30)
[2018-05-15] MEDS: HEPARIN SOD (PORCINE) 5,000 UNIT/ML 1 ML SYRINGE SUBCUT SCH ×3 (05:03→22:38)
[2018-05-15 06:08] LABS: ABSOLUTE BASOPHILS # (AUTO) 0.1 10^3/uL (0.0-0.2); ABSOLUTE EOSINOPHILS # (AUTO) 0.2 10^3/uL (0.0-0.6); ABSOLUTE LYMPHOCYTES (AUTO) 3.1 10^3/uL (0.5-4.7); ABSOLUTE MONOCYTES (AUTO) 0.5 10^3/uL (0.1-1.4); ABSOLUTE NEUT (AUTO) 3.9 10^3/uL (1.7-8.2); BASOPHILS % (AUTO) 0.7 % (0-2); HEMATOCRIT 30.3 % (36.0-47.0); HEMOGLOBIN 10.1 g/dL (12.0-15.5); LYMPHOCYTES % (AUTO) 39.8 % (13-45); MEAN CORPUSCULAR HEMOGLOBIN 27.1 pg (27.0-33.4); MEAN CORPUSCULAR HGB CONC 33.4 g/dL (32.0-36.0); MEAN CORPUSCULAR VOLUME 81 fl (80-97); MONOCYTES % (AUTO) 6.2 % (3-13); PLATELET COUNT 158 10^3/uL (150-450); RED BLOOD COUNT 3.74 10^6/uL (3.72-5.28); RED CELL DISTRIBUTION WIDTH 15.2 % (11.5-14.0); SEGMENTED NEUTROPHILS % (AUTO) 50.3 % (42-78); TOTAL CELLS COUNTED % (AUTO) 100 %; WHITE BLOOD COUNT 7.8 10^3/uL (4.0-10.5)
[2018-05-15 06:26] LABS: ALANINE AMINOTRANSFERASE 18 U/L (9-52); ALBUMIN 3.1 g/dL (3.5-5.0); ALKALINE PHOSPHATASE 69 U/L (38-126); ANION GAP 10 (5-19); ASPARTATE AMINO TRANSFERASE 17 U/L (14-36); BILIRUBIN,DIRECT 0.3 mg/dL (0.0-0.4); BILIRUBIN,TOTAL 0.3 mg/dL (0.2-1.3); BLOOD UREA NITROGEN 27 mg/dL (7-20); CALCIUM 8.8 mg/dL (8.4-10.2); CARBON DIOXIDE 21 mmol/L (22-30); CHLORIDE 110 mmol/L (98-107); GLUCOSE 173 mg/dL (75-110); POTASSIUM 4.4 mmol/L (3.6-5.0); SODIUM 140.6 mmol/L (137-145); TOTAL PROTEIN 6.4 g/dL (6.3-8.2)
[2018-05-15] MEDS: INSULIN LISPRO 100 UNIT/ML 3 ML VIAL SUBCUT PRN ×2 (09:00→17:32)
[2018-05-15] MEDS: ASPIRIN/DIPYRIDAMOLE 25-200 MG 1 CAP.SR CPMP.12HR PO SCH ×2 (09:00→22:38)
[2018-05-15] MEDS ORDERED: ACETAMINOPHEN 325 MG TABLET PO PRN (13:45)
--- NOTE | 2018-05-15 20:50 | PDOC PROGRESS REPORT ---
Subjective Progress Note for:: 05/15/18 Subjective:: Patient seen by the bedside, confused, recently had a stroke, [facility] Reason For Visit: TIA/CVA Physical Exam Vital Signs: Temp Pulse Resp BP Pulse Ox 98.3 F 62 20 167/59 H 100 05/15/18 19:28 05/15/18 19:28 05/15/18 19:28 05/15/18 19:28 05/15/18 19:28 Intake & Output 05/14/18 05/15/18 05/16/18 06:59 06:59 06:59 Intake Total 200 1932 427 Output Total 300 1300 800 Balance -100 632 -373 Weight 61 kg 63.7 kg General appearance: PRESENT: no acute distress Eye exam: PRESENT: PERRLA Respiratory exam: PRESENT: clear to auscultation linda Cardiovascular exam: PRESENT: +S1, +S2 GI/Abdominal exam: PRESENT: soft Neurological exam: PRESENT: alert Results Laboratory Results: 05/15/18 05:26 05/15/18 05:26 05/15/18 05/15/18 05:26 05:26 WBC 7.8 RBC 3.74 Hgb 10.1 L Hct 30.3 L MCV 81 MCH 27.1 MCHC 33.4 RDW 15.2 H Plt Count 158 Seg Neutrophils % 50.3 Lymphocytes % 39.8 Monocytes % 6.2 Eosinophils % 3.0 Basophils % 0.7 Absolute Neutrophils 3.9 Absolute Lymphocytes 3.1 Absolute Monocytes 0.5 Absolute Eosinophils 0.2 Absolute Basophils 0.1 Sodium 140.6 Potassium 4.4 Chloride 110 H Carbon Dioxide 21 L Anion Gap 10 BUN 27 H Creatinine 1.40 H Est GFR ( Amer) 44 L Est GFR (Non-Af Amer) 36 L Glucose 173 H Calcium 8.8 Total Bilirubin 0.3 AST 17 ALT 18 Alkaline Phosphatase 69 Total Protein 6.4 Albumin 3.1 L 05/13/18 05/13/18 05/14/18 21:11 21:11 03:13 Creatine Kinase 60 63 CK-MB (CK-2) 1.08 Troponin I 0.110 05/14/18 05/14/18 05/14/18 03:13 09:40 09:40 Creatine Kinase 57 CK-MB (CK-2) 1.04 1.05 Troponin I 0.111 0.118 Impressions: Chest X-Ray 05/13/18 18:17 IMPRESSION: NO ACUTE RADIOGRAPHIC FINDING IN THE CHEST. Head CT 05/13/18 18:17 IMPRESSION: MILD CHRONIC CHANGES OF ATROPHY AND MICROVASCULAR ISCHEMIA. NO ACUTE PROCESS. EVIDENCE OF ACUTE STROKE: NO. Carotid Doppler Study 05/13/18 20:51 IMPRESSION: Mild scattered plaque. No evidence for severe stenosis. 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
[2018-05-15] MEDS: SIMVASTATIN 40 MG TABLET PO SCH (22:38)
--- NOTE | 2018-05-16 02:58 | RADIOLOGY REPORT (SQ) ---
EXAM DESCRIPTION: Renal ultrasound May 16, 2018 CLINICAL HISTORY: 83 years, Female, CKD COMPARISON: Renal ultrasound May 24, 2017 TECHNIQUE: Utilizing a curved array transducer, real-time ultrasound evaluation of the bilateral kidneys and urinary bladder was performed. Color Doppler imaging was used assess vascular flow. FINDINGS: The right kidney measures 7.5 x 3.2 x 8.7 cm with cortical thickness of 0.8 . There is no evidence of hydronephrosis or shadowing right renal calculi. There are no grossly abnormal right renal masses. There is increased echogenicity of the right kidney relative to the adjacent liver. The left kidney measures 8.1 x 3.5 x 3.1 cm with cortical thickness of 0.9. There is no evidence of hydronephrosis or shadowing left renal calculi. There are no grossly abnormal masses identified. There is increased echogenicity of the left kidney relative to the adjacent spleen. The bladder is largely nondistended and not well visualized. Retroperitoneal structures are not well visualized IMPRESSION: Echogenic atrophic bilateral kidneys without hydronephrosis or shadowing renal calculi.
[2018-05-16 05:03] LABS: ABSOLUTE EOSINOPHILS # (AUTO) 0.3 10^3/uL (0.0-0.6); ABSOLUTE MONOCYTES (AUTO) 0.4 10^3/uL (0.1-1.4); ABSOLUTE NEUT (AUTO) 4.3 10^3/uL (1.7-8.2); BASOPHILS % (AUTO) 0.5 % (0-2); EOSINOPHILS % (AUTO) 4.1 % (0-6); HEMATOCRIT 32.1 % (36.0-47.0); HEMOGLOBIN 10.8 g/dL (12.0-15.5); LYMPHOCYTES % (AUTO) 37.1 % (13-45); MEAN CORPUSCULAR HEMOGLOBIN 27.3 pg (27.0-33.4); MEAN CORPUSCULAR HGB CONC 33.7 g/dL (32.0-36.0); MEAN CORPUSCULAR VOLUME 81 fl (80-97); MONOCYTES % (AUTO) 5.6 % (3-13); PLATELET COUNT 168 10^3/uL (150-450); RED BLOOD COUNT 3.96 10^6/uL (3.72-5.28); RED CELL DISTRIBUTION WIDTH 15.5 % (11.5-14.0); SEGMENTED NEUTROPHILS % (AUTO) 52.7 % (42-78); TOTAL CELLS COUNTED % (AUTO) 100 %; WHITE BLOOD COUNT 8.1 10^3/uL (4.0-10.5)
[2018-05-16 05:25] LABS: ALANINE AMINOTRANSFERASE 24 U/L (9-52); ALBUMIN 3.4 g/dL (3.5-5.0); ALKALINE PHOSPHATASE 62 U/L (38-126); ANION GAP 11 (5-19); ASPARTATE AMINO TRANSFERASE 18 U/L (14-36); BILIRUBIN,DIRECT 0.3 mg/dL (0.0-0.4); BILIRUBIN,TOTAL 0.4 mg/dL (0.2-1.3); BLOOD UREA NITROGEN 24 mg/dL (7-20); CALCIUM 9.1 mg/dL (8.4-10.2); CARBON DIOXIDE 20 mmol/L (22-30); CHLORIDE 111 mmol/L (98-107); GLUCOSE 128 mg/dL (75-110); POTASSIUM 4.4 mmol/L (3.6-5.0); SODIUM 141.8 mmol/L (137-145); TOTAL PROTEIN 6.7 g/dL (6.3-8.2)
[2018-05-16] MEDS: HEPARIN SOD (PORCINE) 5,000 UNIT/ML 1 ML SYRINGE SUBCUT SCH ×2 (06:08→14:44)
[2018-05-16] MEDS: ASPIRIN/DIPYRIDAMOLE 25-200 MG 1 CAP.SR CPMP.12HR PO SCH (10:26)
[2018-05-16 12:06] VITALS: BP 136/53
--- NOTE | 2018-05-16 12:39 | PDOC TRANSFER SUMMARY ---
General - Admit/Disc Date/PCP Admission Date/Primary Care Provider: 05/13/18 19:10 ADRIANNA GÓMEZ MD Discharge Date: 05/16/18 - Discharge Diagnosis (1) Acute ischemic left MCA stroke Is this a current diagnosis for this admission?: Yes (2) Type 2 diabetes mellitus Is this a current diagnosis for this admission?: Yes (3) Elevated troponin Is this a current diagnosis for this admission?: Yes (4) Acute kidney injury superimposed on chronic kidney disease Is this a current diagnosis for this admission?: Yes (5) Nephrosclerosis Is this a current diagnosis for this admission?: Yes (6) Chronic kidney disease, stage 3 (moderate) Is this a current diagnosis for this admission?: Yes (7) Dementia Is this a current diagnosis for this admission?: Yes - Additional Information Prescriptions: Atorvastatin Calcium [Lipitor 40 mg Tablet] 40 mg PO QHS #30 tablet Losartan Potassium 100 mg PO DAILY #300 tablet Home Medications: Metformin HCl [Metformin HCl ER] 1,000 mg PO DAILY 05/13/18 Acetaminophen [Tylenol 325 mg Tablet] 650 mg PO Q6HP PRN tablet 05/16/18 Aspirin/Dipyridamole [Aggrenox 25 mg/200 mg Capsule SA] 1 cap.sr PO Q12 cpmp.12hr 05/16/18 Atorvastatin Calcium [Lipitor 40 mg Tablet] 40 mg PO QHS #30 tablet 05/16/18 Losartan Potassium 100 mg PO DAILY #300 tablet 05/16/18 History of Present Illness Admission Date/PCP: 05/13/18 19:10 ADRIANNA GÓMEZ MD History of Present Illness: TORRI ARCEO is a 83 year old female she has a history of type 2 diabetes mellitus poorly controlled, cognitive impairment, she came to the office with her daughter for evaluation of weakness of the right upper extremities, this symptom apparently started earlier in the day, the daughter stated that about lunchtime she felt too weak she could not lift her she was concerned, she has examined her mother 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 She came to the office for evaluation, she was examined in the office, there was weakness of the right upper extremities, the story was consistent with TIA with evolving CVA, she was referred to the ER for evaluation, in the emergency room CT head was done which came back negative subsequent MRI of the brain was done, it demonstrated diffuse weighted images positive for punctate nonhemorrhagic infarcts along the left posterior frontal cortex and subcortical white matter the left MCA distribution most likely embolic stroke. She has a history of severe aortic stenosis that was treated with transcatheter aortic valve replacement. She has no history of atrial fibrillation diagnosis that I know about Hospital Course Hospital Course: Patient was admitted for the management of CVA according to stroke protocol, MRI brain was done, it confirmed stroke. Doppler of the carotid artery was done , there was no significant stenosis. She has chronic kidney disease with a superimposed acute kidney injury, kidney ultrasound was done, it demonstrated echogenic atrophic bilateral kidneys without hydronephrosis. She was seen by physical therapy. The plan is to transfer to long term for rehabilitation Physical Exam Vital Signs: Temp Pulse Resp BP Pulse Ox 97.8 F 58 L 16 136/53 H 100 05/16/18 11:41 05/16/18 11:41 05/16/18 11:41 05/16/18 11:41 05/16/18 11:41 Intake & Output 05/15/18 05/16/18 05/17/18 06:59 06:59 06:59 Intake Total 1932 782 300 Output Total 1300 1200 200 Balance 632 -418 100 Weight 63.7 kg General appearance: PRESENT: no acute distress Eye exam: PRESENT: PERRLA Respiratory exam: PRESENT: clear to auscultation linda Cardiovascular exam: PRESENT: +S1, +S2 GI/Abdominal exam: PRESENT: soft Neurological exam: PRESENT: alert, motor sensory deficit - Right-sided paralysis Results Laboratory Results: 05/16/18 04:34 05/16/18 04:34 05/16/18 05/16/18 04:34 04:34 WBC 8.1 RBC 3.96 Hgb 10.8 L Hct 32.1 L MCV 81 MCH 27.3 MCHC 33.7 RDW 15.5 H Plt Count 168 Seg Neutrophils % 52.7 Lymphocytes % 37.1 Monocytes % 5.6 Eosinophils % 4.1 Basophils % 0.5 Absolute Neutrophils 4.3 Absolute Lymphocytes 3.0 Absolute Monocytes 0.4 Absolute Eosinophils 0.3 Absolute Basophils 0.0 Sodium 141.8 Potassium 4.4 Chloride 111 H Carbon Dioxide 20 L Anion Gap 11 BUN 24 H Creatinine 1.25 Est GFR ( Amer) 50 L Est GFR (Non-Af Amer) 41 L Glucose 128 H Calcium 9.1 Total Bilirubin 0.4 AST 18 ALT 24 Alkaline Phosphatase 62 Total Protein 6.7 Albumin 3.4 L 05/13/18 05/13/18 05/14/18 21:11 21:11 03:13 Creatine Kinase 60 63 CK-MB (CK-2) 1.08 Troponin I 0.110 05/14/18 05/14/18 05/14/18 03:13 09:40 09:40 Creatine Kinase 57 CK-MB (CK-2) 1.04 1.05 Troponin I 0.111 0.118 Impressions: Chest X-Ray 05/13/18 18:17 IMPRESSION: NO ACUTE RADIOGRAPHIC FINDING IN THE CHEST. Head CT 05/13/18 18:17 IMPRESSION: MILD CHRONIC CHANGES OF ATROPHY AND MICROVASCULAR ISCHEMIA. NO ACUTE PROCESS. EVIDENCE OF ACUTE STROKE: NO. Carotid Doppler Study 05/13/18 20:51 IMPRESSION: Mild scattered plaque. No evidence for severe stenosis. Head MRI 05/13/18 20:51 IMPRESSION: Diffusion-weighted images are positive for punctate nonhemorrhagic infarct in the left MCA distribution along the motor strip and perisylvian frontal lobe EVIDENCE OF ACUTE STROKE: Yes Renal Ultrasound 05/16/18 00:00 IMPRESSION: Echogenic atrophic bilateral kidneys without hydronephrosis or shadowing renal calculi. Qualifiers - * PATIENT BEING DISCHARGED WITH ANY OF THE FOLLOWING DIAGNOSIS: Stroke VTE patient discharged on overlapping Therapy?: Yes Stroke Pt being discharged on Anti-thrombolytic therapy?: Yes Stroke Pt being discharged on Anti-coagulation therapy?: Yes Stroke Pt being discharged on Statins?: Yes
[2018-05-16] MEDS: INSULIN LISPRO 100 UNIT/ML 3 ML VIAL SUBCUT PRN (12:42)
--- NOTE | 2018-05-16 19:45 | XCELERA REPORT ---
[address] [address] Transthoracic Echocardiogram Report Name: TORRI ARCEO Age: 83 yrs Gender: Female : 1935 Patient Status: Inpatient Patient Location: [address] [place], [place] [id number] Study Date: 05/13/2018 09:28 PM Height: 63 in Weight: 132 lb BSA: 1.6 m2 Procedure: A two-dimensional transthoracic echocardiogram with color flow and Doppler was performed. Study Quality: Fair. Reason For Study: cva History: CVA. Ordering Physician: ADRIANNA GÓMEZ Performed By: Celine Allen Interpretation Summary There is no obvious cardiac source of embolus noted on this transthoracic echocardiogram. Follow-up with a [facility] is suggested if cardiac source is still suspected. CVA The left ventricle is normal in size. There is mild concentric left ventricular hypertrophy. LV EF is 60% Left ventricular systolic function is normal. Doppler measurements suggest impaired left ventricular relaxation, which is associated with grade I/IV or mild diastolic dysfunction The left ventricular wall motion is normal. There is no thrombus. The right ventricle is not well visualized secondary to technical limitations The left atrial size is normal. Calcified mitral apparatus causing mitral stenosis. There is no evidence of mitral valve prolapse. There is no vegetation seen on the mitral valve. There is mild mitral stenosis There is a trace amount of mitral regurgitation There is no aortic valvular vegetation. There is mild aortic stenosis There is a peak gradient of 23 mm of Hg. There is a mild amount of aortic regurgitation There is no tricuspid stenosis. There is a trace amount of tricuspid regurgitation Right ventricular systolic pressure is normal. RVSP is 14 mm of Hg , wit RA mean of 10. There is no pericardial effusion. There is no obvious cardiac source of embolus noted on this transthoracic echocardiogram. Follow-up with a [facility] is suggested if cardiac source is still suspected MMode/2D Measurements & Calculations RVDd: 2.4 cm LVIDd: 4.3 cm FS: 34.7 % Ao root diam: 1.9 cm IVSd: 1.4 cm LVIDs: 2.8 cm EDV(Teich): 85.3 ml Ao root area: 2.7 cm2 LVPWd: 1.1 cm ESV(Teich): 30.6 ml LA dimension: 3.0 cm EF(Teich): 64.1 % Doppler Measurements & Calculations MV E max karthik: MV P1/2t max karthik: Ao V2 max: AI max karthik: 88.4 cm/sec 115.1 cm/sec 238.9 cm/sec 291.0 cm/sec MV A max karthik: MV P1/2t: 79.1 msec Ao max PG: AI max P.6 cm/sec MVA(P1/2t): 2.8 cm2 22.8 mmHg 34.3 mmHg MV E/A: 0.62 MV dec slope: AI dec slope: 119.5 cm/sec2 426.1 cm/sec2 AI P1/2t: MV dec time: 0.36 sec 713.0 msec LV V1 max PG: TV V2 max: PA V2 max: TR max karthik: 6.2 mmHg 66.7 cm/sec 85.3 cm/sec 98.5 cm/sec LV V1 max: TV max P.8 mmHg PA max PG: TR max P.9 mmHg 124.8 cm/sec 2.9 mmHg AV P1/2t-pr_phl: MV P1/2t-pr_phl: 765.8 msec 79.1 msec Left Ventricle The left ventricle is normal in size. There is mild concentric left ventricular hypertrophy. LV EF is 60%. Left ventricular systolic function is normal. Doppler measurements suggest impaired left ventricular relaxation, which is associated with grade I/IV or mild diastolic dysfunction. The left ventricular wall motion is normal. There is no thrombus. Right Ventricle The right ventricle is not well visualized secondary to technical limitations. Atria The right atrium is normal. The left atrial size is normal. Mitral Valve Calcified mitral apparatus causing mitral stenosis. There is no evidence of mitral valve prolapse. There is no vegetation seen on the mitral valve. There is mild mitral stenosis. There is a trace amount of mitral regurgitation. Aortic Valve There is no aortic valvular vegetation. There is mild aortic stenosis. There is a peak gradient of 23 mm of Hg. There is a mild amount of aortic regurgitation. Tricuspid Valve There is no tricuspid stenosis. There is a trace amount of tricuspid regurgitation. Right ventricular systolic pressure is normal. RVSP is 14 mm of Hg , wit RA mean of 10. Pulmonic Valve There is no pulmonic valvular stenosis. There is no pulmonic valvular regurgitation. Great Vessels The aortic root is normal size. Effusions There is no pericardial effusion. : ADRIANNA GÓMEZ > Rylie Biswas
== END 2018-05-16 16:10 | DRG 65 ==
LOC: ER 18:08 → EH 19:10 → 3W 20:10
PROVIDERS: ADMIT Internal Medicine; ATTEND Internal Medicine
DX: I63.412 Cerebral infarction due to embolism of left middle cerebral artery (principal); N17.9 Acute kidney failure, unspecified; G81.91 Hemiplegia, unspecified affecting right dominant side; N18.3 Chronic kidney disease, stage 3 (moderate); E11.22 Type 2 diabetes mellitus with diabetic chronic kidney disease; F03.90 Unspecified dementia, unspecified severity, without behavioral disturbance, psychotic disturbance, mood disturbance, and anxiety; I12.9 Hypertensive chronic kidney disease with stage 1 through stage 4 chronic kidney disease, or unspecified chronic kidney disease; E11.65 Type 2 diabetes mellitus with hyperglycemia; M19.90 Unspecified osteoarthritis, unspecified site; D63.1 Anemia in chronic kidney disease; R00.1 Bradycardia, unspecified; Z23 Encounter for immunization; Z79.899 Other long term (current) drug therapy; Z90.710 Acquired absence of both cervix and uterus; Z79.82 Long term (current) use of aspirin; Z79.84 Long term (current) use of oral hypoglycemic drugs
CPT/HCPCS: 36415; 36600; 70450; 70551; 71045; 76775; 80053; 80061; 81001; 82550; 82553; 82803; 82962; 83036; 84484; 85025; 85610; 85730; 90686; 93005; 93010; 93306; 93880; 99285; G8987-GO; G8988-GO; J1644; J1815; J3490

== ENCOUNTER 2018-05-18 13:47 | Emergency (ER) | payer MEDICARE, MEDICAID ==
--- NOTE | 2018-05-18 14:23 | ER Document Report ---
ED Dizziness/Weakness - General Chief Complaint: Syncope Stated Complaint: POSSIBLE SYNCOPE Time Seen by Provider: 05/18/18 14:05 Mode of Arrival: Medic Information source: Patient, Relative Notes: 83-year-old female brought to the emergency department by EMS for near syncopal episode. Patient was sitting outside under a canopy when began feeling very hot and flushed. Her daughter laid her down. She put cold water on her face. Patient began to feel better. Daughter called EMS and wanted her evaluated. Patient had a stroke 5 days ago. She was discharged from the hospital to a rehabilitation center. She is been there for the last couple of days. The daughter states that she has residual right hand weakness. Daughter states that the patient is acting like her normal self. Patient denies any chest pain, shortness of breath, nausea, vomiting, abdominal pain, vision changes, speech changes, new numbness, tingling, weakness. TRAVEL OUTSIDE OF THE [place] IN LAST 30 DAYS: No - HPI Patient complains to provider of: Near-syncope Onset: Just prior to arrival Onset/Duration: Sudden Quality of pain: No pain Severity: Mild Pain Level: Denies Associated symptoms: Almost fainted - Related Data Allergies/Adverse Reactions: No Known Allergies Allergy (Verified 05/18/18 13:49) Past Medical History - Social History Smoking Status: Never Smoker Chew tobacco use (# tins/day): No Frequency of alcohol use: None Drug Abuse: None Family History: Reviewed & Not Pertinent Patient has suicidal ideation: No Patient has homicidal ideation: No - Past Medical History Cardiac Medical History: Denies: Hx Coronary Artery Disease, Hx Heart Attack, Hx Hypertension Pulmonary Medical History: Denies: Hx Asthma, Hx Bronchitis, Hx COPD, Hx Pneumonia Neurological Medical History: Denies: Hx Cerebrovascular Accident, Hx Seizures Endocrine Medical History: Reports: Hx Diabetes Mellitus Type 2 Renal/ Medical History: Denies: Hx Peritoneal Dialysis GI Medical History: Denies: Hx Hepatitis, Hx Hiatal Hernia, Hx Ulcer Musculoskeletal Medical History: Reports Hx Arthritis Psychiatric Medical History: Reports: Hx Dementia Infectious Medical History: Denies: Hx Hepatitis Past Surgical History: Reports: Hx Cardiac Surgery - TAVR, Hx Hysterectomy. Denies: Hx Mastectomy, Hx Open Heart Surgery, Hx Pacemaker - Immunizations Hx Diphtheria, Pertussis, Tetanus Vaccination: No Hx Pneumococcal Vaccination: 05/12/17 Review of Systems - Review of Systems Constitutional: No symptoms reported EENT: No symptoms reported Cardiovascular: Lightheaded Respiratory: No symptoms reported Gastrointestinal: No symptoms reported Genitourinary: No symptoms reported Female Genitourinary: No symptoms reported Musculoskeletal: Muscle pain Skin: No symptoms reported Neurological/Psychological: No symptoms reported -: Yes All other systems reviewed and negative Physical Exam - Vital signs Vitals: Resp 19 05/18/18 13:59 - Notes Notes: PHYSICAL EXAMINATION: GENERAL: Well-appearing, well-nourished and in no acute distress. HEAD: Atraumatic, normocephalic. EYES: Pupils equal round and reactive to light, extraocular movements intact, conjunctiva are normal. ENT: Nares patent, oropharynx clear without exudates. Moist mucous membranes. NECK: Normal range of motion, supple without lymphadenopathy LUNGS: Breath sounds clear to auscultation bilaterally and equal. No wheezes rales or rhonchi. HEART: Regular rate and rhythm without murmurs ABDOMEN: Soft, nontender, nondistended abdomen. No guarding, no rebound. No masses appreciated. Female : deferred Musculoskeletal: Normal range of motion, no pitting or edema. No cyanosis. Left-sided trapezius muscle tenderness to palpation. NEUROLOGICAL: Cranial nerves grossly intact. Normal speech, normal gait. Normal sensory. Right hand weakness. PSYCH: Normal mood, normal affect. SKIN: Warm, Dry, normal turgor, no rashes or lesions noted. Course - Re-evaluation Re-evalutation: 05/18/18 14:22 EKG: Ventricular rate 62, IN interval 168, QRS duration 94, QTc 451, sinus rhythm, left axis deviation, EKG is similar to 05/13/18. 05/18/18 16:31 EKG repeat: Ventricular rate 61, IN interval 176, QRS duration 92, QTc 456, sinus rhythm, left axis deviation, EKG similar to previous. 05/18/18 18:57 Labs and imaging obtained. Chest xray shows pulmonary vasular congestion. Patient's creatinine is slightly elevated from previous. Patient's troponin is chronically elevated. 2 sets of troponins and EKGs were done. No new ischemic changes were appreciated. Orthostatic vitals were obtained. Patient does have some orthostatic hypotension. Patient given 500cc fluid bolus. No complaints from patient on re-evaluation. I discussed results with the daughter. I instructed the patient to go slowly from sitting to standing. I told the patient and her family to follow-up with the primary care physician this week, to continue taking the medication as directed, and to return to the emergency department for worsening symptoms. They are agreeable with plan of care. 05/18/18 18:58 - Vital Signs Vital signs: Temp Pulse Resp BP Pulse Ox 67 14 135/59 H 100 05/18/18 15:22 05/18/18 18:01 05/18/18 18:01 05/18/18 18:01 - Laboratory Result Diagrams: 05/18/18 13:27 05/18/18 13:27 Laboratory results interpreted by me: 05/18/18 05/18/18 05/18/18 13:27 13:27 13:35 WBC 11.5 H Hgb 11.1 L Hct 34.7 L MCH 26.7 L MCHC 31.9 L RDW 15.4 H Chloride 108 H Carbon Dioxide 21 L BUN 34 H Creatinine 1.89 H Est GFR ( Amer) 31 L Est GFR (Non-Af Amer) 25 L Glucose 166 H Urine Protein 100 H Urine Urobilinogen 4.0 H Ur Leukocyte Esterase TRACE H Discharge - Discharge Clinical Impression: Near syncope, Orthostatic hypotension Condition: Good Disposition: HOME, SELF-CARE Instructions: Near Syncopal Episode ([facility]), Orthostatic Hypotension ([facility]) Referrals: ADRIANNA GÓMEZ MD [Primary Care Provider] - Follow up as needed
[2018-05-18 14:29] LABS: ABSOLUTE EOSINOPHILS # (AUTO) 0.1 10^3/uL (0.0-0.6); ABSOLUTE MONOCYTES (AUTO) 0.6 10^3/uL (0.1-1.4); ABSOLUTE NEUT (AUTO) 6.7 10^3/uL (1.7-8.2); BASOPHILS % (AUTO) 0.3 % (0-2); EOSINOPHILS % (AUTO) 1.2 % (0-6); HEMATOCRIT 34.7 % (36.0-47.0); HEMOGLOBIN 11.1 g/dL (12.0-15.5); MEAN CORPUSCULAR HEMOGLOBIN 26.7 pg (27.0-33.4); MEAN CORPUSCULAR HGB CONC 31.9 g/dL (32.0-36.0); MEAN CORPUSCULAR VOLUME 84 fl (80-97); PLATELET COUNT 205 10^3/uL (150-450); RED BLOOD COUNT 4.15 10^6/uL (3.72-5.28); RED CELL DISTRIBUTION WIDTH 15.4 % (11.5-14.0); SEGMENTED NEUTROPHILS % (AUTO) 58.5 % (42-78); TOTAL CELLS COUNTED % (AUTO) 100 %; WHITE BLOOD COUNT 11.5 10^3/uL (4.0-10.5)
[2018-05-18 14:56] LABS: ALANINE AMINOTRANSFERASE 20 U/L (9-52); ALBUMIN 3.9 g/dL (3.5-5.0); ALKALINE PHOSPHATASE 63 U/L (38-126); ANION GAP 13 (5-19); ASPARTATE AMINO TRANSFERASE 30 U/L (14-36); BILIRUBIN,DIRECT 0.3 mg/dL (0.0-0.4); BILIRUBIN,TOTAL 0.6 mg/dL (0.2-1.3); BLOOD UREA NITROGEN 34 mg/dL (7-20); CALCIUM 9.9 mg/dL (8.4-10.2); CARBON DIOXIDE 21 mmol/L (22-30); CHLORIDE 108 mmol/L (98-107); CREATINE KINASE 52 U/L (30-135); GLUCOSE 166 mg/dL (75-110); POTASSIUM 4.8 mmol/L (3.6-5.0); SODIUM 141.6 mmol/L (137-145); TOTAL PROTEIN 7.5 g/dL (6.3-8.2)
[2018-05-18 15:07] LABS: CREATINE KINASE MB 1.11 ng/mL (<4.55)
[2018-05-18 15:11] LABS: APPEARANCE,URINE CLOUDY; BILIRUBIN,URINE NEGATIVE (NEGATIVE); COLOR,URINE AMBER; GLUCOSE, URINE NEGATIVE (NEGATIVE); KETONES,URINE NEGATIVE (NEGATIVE); LEUKOCYTE ESTERASE,URINE TRACE (NEGATIVE); NITRITE,URINE NEGATIVE (NEGATIVE); PROTEIN,URINE 100 mg/dL (NEGATIVE); URINE SPECIFIC GRAVITY 1.021
--- NOTE | 2018-05-18 15:14 | RADIOLOGY REPORT (SQ) ---
EXAM DESCRIPTION: CHEST 2 VIEWS COMPLETED DATE/TIME: 05/18/2018 2:38 pm REASON FOR STUDY: near syncope COMPARISON: 05/13/2018 EXAM PARAMETERS: NUMBER OF VIEWS: two views TECHNIQUE: Digital Frontal and Lateral radiographic views of the chest acquired. RADIATION DOSE: NA LIMITATIONS: none FINDINGS: LUNGS AND PLEURA: No opacities, masses or pneumothorax. No pleural effusion. MEDIASTINUM AND HILAR STRUCTURES: No masses or contour abnormalities. HEART AND VASCULAR STRUCTURES: Mild cardiomegaly. Calcifications of the aortic knob. Central pulmon bernadette vasculature is prominent with prominent interstitial markings bilaterally. BONES: Unchanged mild compression deformity of L2, seen on CT November 2017 HARDWARE: Prosthetic heart valve present, unchanged. OTHER: No other significant finding. IMPRESSION: Cardiomegaly with mild pulmonary vascular congestion. TECHNICAL DOCUMENTATION: JOB ID: [id number] [employer]- All Rights Reserved Reading location - IP/workstation name: [email or web address]
[2018-05-18 15:15] LABS: TROPONIN I 0.124 ng/mL
[2018-05-18] MEDS ORDERED: NORMAL SALINE 500 ML IV ONE (15:30)
--- NOTE | 2018-05-18 19:10 | EKG REPORT ---
SEVERITY:- ABNORMAL ECG - SINUS RHYTHM LEFT AXIS DEVIATION LVH WITH SECONDARY REPOLARIZATION ABNORMALITY ANTERIOR Q WAVES, POSSIBLY DUE TO LVH : Confirmed by: Annemarie Montes 18-May-2018 19:09:22
--- NOTE | 2018-05-18 19:10 | EKG REPORT ---
SEVERITY:- ABNORMAL ECG - SINUS RHYTHM LEFT AXIS DEVIATION LVH WITH SECONDARY REPOLARIZATION ABNORMALITY : Confirmed by: Annemarie Montes 18-May-2018 19:09:38
[2018-05-18 19:28] VITALS: BP 172/58
== END 2018-05-18 19:28 | disposition home or self-care (01) ==
LOC: ER 13:47
DX: I95.1 Orthostatic hypotension (principal); E11.9 Type 2 diabetes mellitus without complications; Z90.710 Acquired absence of both cervix and uterus
CPT/HCPCS: 93005; 99285; 96360; 96361; 36415; 82553; 82550; 85025; 80053; 81001; 84484; 71046; 93010; J7040

== ENCOUNTER 2018-06-10 14:13 | Inpatient (IN) | payer MEDICARE, MEDICAID ==
[2018-06-10 14:42] LABS: ABSOLUTE EOSINOPHILS # (AUTO) 0.2 10^3/uL (0.0-0.6); ABSOLUTE LYMPHOCYTES (AUTO) 2.5 10^3/uL (0.5-4.7); ABSOLUTE MONOCYTES (AUTO) 0.4 10^3/uL (0.1-1.4); ABSOLUTE NEUT (AUTO) 4.9 10^3/uL (1.7-8.2); BASOPHILS % (AUTO) 0.2 % (0-2); EOSINOPHILS % (AUTO) 2.7 % (0-6); HEMATOCRIT 32.4 % (36.0-47.0); HEMOGLOBIN 10.6 g/dL (12.0-15.5); LYMPHOCYTES % (AUTO) 31.2 % (13-45); MEAN CORPUSCULAR HEMOGLOBIN 27.5 pg (27.0-33.4); MEAN CORPUSCULAR HGB CONC 32.8 g/dL (32.0-36.0); MEAN CORPUSCULAR VOLUME 84 fl (80-97); MONOCYTES % (AUTO) 4.7 % (3-13); PLATELET COUNT 182 10^3/uL (150-450); RED BLOOD COUNT 3.86 10^6/uL (3.72-5.28); RED CELL DISTRIBUTION WIDTH 16.6 % (11.5-14.0); SEGMENTED NEUTROPHILS % (AUTO) 61.2 % (42-78); TOTAL CELLS COUNTED % (AUTO) 100 %
--- NOTE | 2018-06-10 14:49 | RADIOLOGY REPORT (SQ) ---
EXAM DESCRIPTION: CT HEAD WITHOUT COMPLETED DATE/TIME: 06/10/2018 2:35 pm REASON FOR STUDY: R/O STROKE COMPARISON: MR 05/14/2018. CT 05/13/2018. TECHNIQUE: Axial images acquired through the brain without intravenous contrast. Images reviewed wi th bone, brain and subdural windows. Additional sagittal and coronal reconstructions were generated. Images stored on PACS. All CT scanners at this facility use dose modulation, iterative reconstruction, and/or weight based d osing when appropriate to reduce radiation dose to as low as reasonably achievable (ALARA). [facility]: Dose Right [facility]: CareDose [facility]: Dose Right [facility]: Teradose 4D [facility]: I Do Now I Don't RADIATION DOSE: mGy. LIMITATIONS: None. FINDINGS: VENTRICLES: Prominent. CEREBRUM: Mild cortical atrophy. No masses. No hemorrhage. No midline shift. No evidence for acut e infarction. Few scattered areas of low density in the white matter most likely chronic small vessel ischemic changes. CEREBELLUM: No masses. No hemorrhage. No alteration of density. No evidence for acute infarction. EXTRAAXIAL SPACES: No fluid collections. No masses. ORBITS AND GLOBE: No intra- or extraconal masses. Normal contour of globe without masses. CALVARIUM: No fracture. PARANASAL SINUSES: No fluid or mucosal thickening. SOFT TISSUES: No mass or hematoma. OTHER: No other significant finding. IMPRESSION: Mild involutional changes of aging with mild chronic microvascular ischemia and with no acute intracranial imaging findings. EVIDENCE OF ACUTE STROKE: NO. COMMENT: Quality ID # [id number]: Final reports with documentation of one or more dose reduction techniques (e.g., Automated exposure control, adjustment of the mA and/or kV according to patient size, use of iterative reconstruction technique) TECHNICAL DOCUMENTATION: JOB ID: [id number] [employer]- All Rights Reserved Reading location - IP/workstation name: [email or web address]
[2018-06-10 15:05] LABS: ALANINE AMINOTRANSFERASE 13 U/L (9-52); ALBUMIN 4.3 g/dL (3.5-5.0); ALKALINE PHOSPHATASE 79 U/L (38-126); ANION GAP 15 (5-19); ASPARTATE AMINO TRANSFERASE 21 U/L (14-36); BILIRUBIN,DIRECT 0.2 mg/dL (0.0-0.4); BILIRUBIN,TOTAL 0.4 mg/dL (0.2-1.3); BLOOD UREA NITROGEN 29 mg/dL (7-20); CALCIUM 9.9 mg/dL (8.4-10.2); CARBON DIOXIDE 23 mmol/L (22-30); CHLORIDE 107 mmol/L (98-107); CREATINE KINASE 65 U/L (30-135); GLUCOSE 104 mg/dL (75-110); POTASSIUM 5.2 mmol/L (3.6-5.0); TOTAL PROTEIN 7.4 g/dL (6.3-8.2)
[2018-06-10 15:10] LABS: INTERNATIONAL RATION (INR) 1.01; PROTHROMBIN TIME 13.8 SEC (11.4-15.4)
[2018-06-10 15:11] LABS: PARTIAL THROMBOPLASTIN TIME 30.8 SEC (23.5-35.8)
[2018-06-10 15:15] LABS: CREATINE KINASE MB 1.82 ng/mL (<4.55)
[2018-06-10 15:23] LABS: TROPONIN I 0.102 ng/mL
--- NOTE | 2018-06-10 15:29 | RADIOLOGY REPORT (SQ) ---
EXAM DESCRIPTION: CHEST SINGLE VIEW COMPLETED DATE/TIME: 06/10/2018 3:18 pm REASON FOR STUDY: STROKE COMPARISON: 05/18/2018 EXAM PARAMETERS: NUMBER OF VIEWS: One view. TECHNIQUE: Single frontal radiographic view of the chest acquired. RADIATION DOSE: NA LIMITATIONS: None. FINDINGS: LUNGS AND PLEURA: No opacities, masses or pneumothorax. No pleural effusion. MEDIASTINUM AND HILAR STRUCTURES: No masses. Contour normal. HEART AND VASCULAR STRUCTURES: Cardiomegaly. No pulmonary edema. BONES: No acute findings. HARDWARE: Heart valve. OTHER: No other significant finding. IMPRESSION: Cardiomegaly without pulmonary edema. TECHNICAL DOCUMENTATION: JOB ID: [id number] [employer]- All Rights Reserved Reading location - IP/workstation name: [email or web address]
[2018-06-10] MEDS ORDERED: ASPIRIN 325 MG TABLET PO ONE (16:11)
--- NOTE | 2018-06-10 16:31 | ER Document Report ---
ED Neuro Symptoms/Deficit - General Chief Complaint: General Weakness Stated Complaint: WEAKNESS Time Seen by Provider: 06/10/18 15:24 Notes: Patient is here to be evaluated for weakness of her right upper extremity. Patient had a stroke about a month ago which left her with weakness of that right arm. According to the patient's daughter, the stroke did not show up on a CT scan but did show up when the patient had an MRI. She was in the hospital here for a week or more and then she was transferred to a rehab facility where she stayed until this past Saturday, about 4 days ago. When she got out of that facility, family says that her right arm weakness that she had experienced from the stroke a month earlier had resolved and she was using her right hand normally. She is right-hand dominant. Her daughter says that the patient began to complain of weakness in her right hand yesterday afternoon and evening but it seemed to resolve and she went to bed only to have it return again this afternoon. It is causing her to be unable to hold objects or keep her right hand from falling into her face if it is released above her face on the stretcher. Additionally, the daughter thinks that she has had some slurred speech and right facial droop yesterday afternoon and today. Patient denies any pains anywhere. Denies any headache, chest pain, or abdominal pains. Patient currently takes an aspirin/dipyridamole combination medication TRAVEL OUTSIDE OF THE [place] IN LAST 30 DAYS: No - Related Data Allergies/Adverse Reactions: No Known Allergies Allergy (Verified 05/18/18 13:49) Past Medical History - Social History Smoking Status: Unknown if Ever Smoked Family History: Reviewed & Not Pertinent - Past Medical History Cardiac Medical History: Reports: Hx Hypercholesterolemia, Hx Hypertension Endocrine Medical History: Reports: Hx Diabetes Mellitus Type 2 Musculoskeletal Medical History: Reports Hx Arthritis Psychiatric Medical History: Reports: Hx Dementia Past Surgical History: Reports: Hx Cardiac Surgery - TAVR, Hx Hysterectomy - Immunizations Hx Diphtheria, Pertussis, Tetanus Vaccination: No Hx Pneumococcal Vaccination: 05/12/17 Review of Systems - Review of Systems Notes: REVIEW OF SYSTEMS: CONSTITUTIONAL : Denies fever. EENT: Denies eye, ear, nose or mouth or throat pain or other symptoms. CARDIOVASCULAR: Denies chest pain. RESPIRATORY: Denies cough, chest congestion, or shortness of breath. GASTROINTESTINAL: Denies abdominal pain or nausea, vomiting, or diarrhea. GENITOURINARY: Denies difficulty or painful urinating, urinary frequency, blood in urine. MUSCULOSKELETAL: Denies back or neck pain. Denies joint pain or swelling. SKIN: Denies rash or skin lesions. NEUROLOGICAL: Denies LOC or altered mental status. Denies headache. See HPI. ALL OTHER SYSTEMS REVIEWED AND NEGATIVE. Physical Exam - Vital signs Vitals: Pulse Resp BP Pulse Ox 58 L 16 164/64 H 100 06/10/18 14:13 06/10/18 14:13 06/10/18 14:13 06/10/18 14:13 Interpretation: Hypertensive - Mild. No: Hypoxic - Notes Notes: PHYSICAL EXAMINATION: GENERAL: Well-appearing, in no acute distress. HEAD: Atraumatic, normocephalic. EYES: Pupils equal round and reactive to light, extraocular movements intact. ENT: oropharynx clear without exudates. Moist mucous membranes. There may be a very subtle drooping of the right corner of the mouth. Patient speaks with an accent that sounds and she has the appearance of somebody from [place] or there about. So, it is difficult for me to say that the patient has slurred speech or not. The daughter says that the patient does not sound completely normal to her. NECK: Normal range of motion, supple. No bruits heard. LUNGS: Breath sounds clear and equal bilaterally. HEART: Regular rate and rhythm without murmurs. ABDOMEN: Soft, nontender. No guarding or rebound. No masses. BACK: No tenderness throughout entire back. EXTREMITIES: Normal range of motion without pain. NEUROLOGICAL: See HPI patient speech is difficult to understand and I am not sure if that is her normal sound with an accident a new stroke or a combination of both. Awake, alert, and no she is at the hospital, but does not know when it is. Knows her year. Patient has weakness of the right upper extremity , especially in the region of the wrist which droops into a flexed position when the forearm is lifted. When patient's arm is dropped over her face, she will hit herself in the face. After about 15 or 20 minutes, I reexamined the patient and strength returning to that right wrist and forearm. She was able to keep her hand from falling and hitting her face. No change in her speech during this 15 or 20 minutes. PSYCH: Normal mood, normal affect. SKIN: Warm, dry, no rashes. Course - Re-evaluation Re-evalutation: 06/10/18 19:[address] Quintanilla, patient's primary care provider, who will admit her for further. Patient is going to be continued on her aspirin. About the same time that I spoke with Dr. Quintanilla, patient's family reported that she was having worsening weakness of the right arm and forearm and wrist. She is being given aspirin here. - Vital Signs Vital signs: Temp Pulse Resp BP Pulse Ox 58 L 16 164/64 H 100 06/10/18 14:13 06/10/18 14:13 06/10/18 14:13 06/10/18 14:13 - Laboratory Result Diagrams: 06/10/18 13:55 06/10/18 13:55 Laboratory results interpreted by me: 06/10/18 06/10/18 13:55 13:55 Hgb 10.6 L Hct 32.4 L RDW 16.6 H Potassium 5.2 H BUN 29 H Creatinine 1.37 H Est GFR ( Amer) 45 L Est GFR (Non-Af Amer) 37 L - Diagnostic Test Radiology reviewed: Image reviewed, Reports reviewed - CT scan of the brain is normal except for aging findings. - EKG Interpretation by Me EKG shows normal: Sinus rhythm Rate: Normal Rhythm: NSR Voltage: Consistant with LVH Discharge - Discharge Clinical Impression: Recurrent strokes, Right hand weakness Condition: Stable Disposition: ADMITTED INPATIENT Admitting Provider: Lilia Unit Admitted: [facility]
[2018-06-10] MEDS ORDERED: (PENDING PHARMACY ID) (Metformin Hcl [Metformin Hcl Er] 1,000 MG) PO SCH (19:15)
[2018-06-10 19:43] LABS: PROTHROMBIN TIME 13.7 SEC (11.4-15.4)
[2018-06-10 19:44] LABS: PARTIAL THROMBOPLASTIN TIME 30.2 SEC (23.5-35.8)
[2018-06-10 20:03] LABS: CREATINE KINASE MB 2.05 ng/mL (<4.55)
[2018-06-10 20:16] LABS: TROPONIN I 0.121 ng/mL
--- NOTE | 2018-06-10 21:35 | RADIOLOGY REPORT (SQ) ---
EXAM DESCRIPTION: MRI brain without contrast Date and time completed 06/10/2018 7:54 PM CLINICAL HISTORY: cva COMPARISON: CT brain 06/10/2018 TECHNIQUE: Multiplanar images of the brain were obtained without the administration of intravenous contrast FINDINGS: Examination is limited as the patient became agitated and could not complete the examination.. Patient refused additional imaging Ventricles and sulci appear within normal limits for the patient's age consistent with mild atrophy.. No evidence of midline shift or mass effect. There are multiple small punctate foci of restricted diffusion in the left frontal and parietal cortex as well as in the centrum semiovale. These are dark on the ADC sequence and are consistent with areas of acute infarct. Additional area along the left occipital cortex which is indeterminant and may be related to artifact versus area of infarct. This is not obviously dark on the ADC sequence. IMPRESSION: Findings consistent with multiple punctate foci of acute infarct in the left frontal and parietal lobe and centrum semiovale with indeterminant area in the posterior left occipital cortex Patient refused additional imaging The patient's nurse Suzette Hsu was called at 8:25 PM and notified of the findings.
[2018-06-10] MEDS: LOSARTAN POTASSIUM 50 MG TABLET PO SCH (21:47)
[2018-06-10] MEDS: ATORVASTATIN CALCIUM 40 MG TABLET PO SCH (21:47)
[2018-06-10] MEDS: METFORMIN HCL 500 MG TABLET PO SCH (21:47)
[2018-06-10] MEDS: ASPIRIN/DIPYRIDAMOLE 25-200 MG 1 CAP.SR CPMP.12HR PO SCH (21:47)
[2018-06-10] MEDS: ENOXAPARIN SODIUM INJ 30 MG/0.3 ML DISP.SYRIN SUBCUT SCH (21:49)
--- NOTE | 2018-06-10 21:53 | PDOC H&P ---
History of Present Illness Admission Date/PCP: 06/10/18 16:48 ADRIANNA GÓMEZ MD History of Present Illness: TORRI ARCEO is a 83 year old female, she was admitted recently in this hospital May 13, 2018 when she sustained a stroke with weakness of the right upper extremity predominantly, she was transferred to the longterm for rehabilitation on May 16, 2018 she was just discharged from the longterm , she regained full function of right upper extremities. She was brought to the emergency room by her daughter for evaluation of weakness of the right upper extremity, the daughter said she experienced weakness of the right upper extremities yesterday but it seems to resolved, the symptoms recur again this afternoon, she is not able to hold onto objects, there was also associated facial droop with slurred speech. In the emergency room, she was evaluated CT head was done, it was negative for any acute CVA. The symptoms she was manifesting is consistent with CVA though the CT head was negative for CVA, she is also not a candidate for TPA administration because of the timeframe the symptoms started, it is out of the 3-hour timeframe allow for TPA administration. MRI of the brain was done subsequently, it demonstrated multiple small punctate foci of restricted diffusion in the left frontal, parietal cortex as well as the centrum semiovale there is also additional involvement of the occipital cortex this is consistent with multiple acute infarct of the left frontal, parietal and occiput, the stroke looks embolic, EKG did not show any atrial fibrillation, she is presently on Aggrenox, suggesting that patient was still manifesting CVA on Aggrenox, the last time she was in the hospital for CVA she had carotid Doppler done, this was negative for any significant lesion, the potential source of the embolism is not clear, it is probably reasonable to treat with IV heparin low-dose because she seems to has failed treatment with Aggrenox which is aspirin combine with dipyridamole. Past Medical History Cardiac Medical History: Reports: Hyperlipidema, Hypertension, Other - History of transcatheter aortic valve replacement Neurological Medical History: Reports: Ischemic CVA Endocrine Medical History: Reports: Diabetes Mellitus Type 2 Musculoskeltal Medical History: Reports: Arthritis Psychiatric Medical History: Reports: Dementia Hematology: Reports: Anemia - resolved Past Surgical History Past Surgical History: Reports: Hysterectomy Social History Smoking Status: Unknown if Ever Smoked Frequency of Alcohol Use: None Hx Recreational Drug Use: No Drugs: None Hx Prescription Drug Abuse: No Family History Family History: Reviewed & Not Pertinent Parental Family History Reviewed: Yes Children Family History Reviewed: Yes Sibling(s) Family History Reviewed.: Yes Medication/Allergy Home Medications: Aspirin/Dipyridamole [Aggrenox 25 mg/200 mg Capsule SA] 1 cap PO Q12 06/10/18 Atorvastatin Calcium [Lipitor 40 mg Tablet] 40 mg PO DAILY 06/10/18 Losartan Potassium [Cozaar 100 mg Tablet] 100 mg PO DAILY 06/10/18 Metformin HCl [Metformin HCl ER] 1,000 mg PO DAILY 06/10/18 Allergies/Adverse Reactions: No Known Allergies Allergy (Verified 05/18/18 13:49) Review of Systems Constitutional: ABSENT: chills, fever(s), headache(s), weight gain, weight loss Eyes: ABSENT: visual disturbances Ears: ABSENT: hearing changes Cardiovascular: ABSENT: chest pain, dyspnea on exertion, edema, orthropnea, palpitations Respiratory: ABSENT: cough, hemoptysis Gastrointestinal: ABSENT: abdominal pain, constipation, diarrhea, hematemesis, hematochezia, nausea, vomiting Genitourinary: ABSENT: dysuria, hematuria Musculoskeletal: ABSENT: joint swelling Integumentary: ABSENT: rash, wounds Neurological: PRESENT: dizziness, focal weakness, paresthesias Psychiatric: ABSENT: anxiety, depression, homidical ideation, suicidal ideation Endocrine: ABSENT: cold intolerance, heat intolerance, menstrual abnormalities, polydipsia, polyuria Hematologic/Lymphatic: ABSENT: easy bleeding, easy bruising, lymphadenopathy Physical Exam Vital Signs: Temp Pulse Resp BP Pulse Ox 97.6 F 63 16 182/66 H 100 06/10/18 20:43 06/10/18 20:43 06/10/18 20:43 06/10/18 20:43 06/10/18 20:43 General appearance: PRESENT: no acute distress, well-developed, well-nourished Head exam: PRESENT: atraumatic, normocephalic Eye exam: PRESENT: conjunctiva pink, EOMI, PERRLA Ear exam: PRESENT: normal external ear exam Mouth exam: PRESENT: moist, tongue midline Neck exam: PRESENT: full ROM Respiratory exam: PRESENT: clear to auscultation linda Cardiovascular exam: PRESENT: RRR, +S1, +S2 Pulses: PRESENT: normal dorsalis pedis pul, +2 pedal pulses bilateral Vascular exam: PRESENT: normal capillary refill GI/Abdominal exam: PRESENT: normal bowel sounds, soft Rectal exam: PRESENT: deferred Neurological exam: PRESENT: alert, motor sensory deficit - Weakness of the right upper extremities, right lower extremity Psychiatric exam: PRESENT: appropriate affect, normal mood Skin exam: PRESENT: dry, intact, warm Results Laboratory Results: 06/10/18 06/10/18 19:25 19:25 Creatine Kinase 58 CK-MB (CK-2) 2.05 Troponin I 0.121 Impressions: Chest X-Ray 06/10/18 14:16 IMPRESSION: Cardiomegaly without pulmonary edema. Head CT 06/10/18 14:16 IMPRESSION: Mild involutional changes of aging with mild chronic microvascular ischemia and with no acute intracranial imaging findings. EVIDENCE OF ACUTE STROKE: NO. Head MRI 06/10/18 19:09 IMPRESSION: Findings consistent with multiple punctate foci of acute infarct in the left frontal and parietal lobe and centrum semiovale with indeterminant area in the posterior left occipital cortex Patient refused additional imaging The patient's nurse Suzette Hsu was called at 8:25 PM and notified of the findings. Assessment & Plan - Diagnosis (1) Embolic cerebral infarction Qualifiers: Precerebral and cerebral artery: unspecified cerebral artery Qualified Code (s): I63.40 - Cerebral infarction due to embolism of unspecified cerebral artery Is this a current diagnosis for this admission?: Yes Plan: The pattern of the CVA is consistent with embolic stroke, source of embolism is not clear, she will be treated with Aggrenox for 24 hours this will be transitioned to IV heparin according to the protocol, IV heparin is not to use initially because of the risk of hemorrhagic transformation the first 24 hours. I discussed the findings of the MRI with the patient's daughter, also find out about her CODE STATUS because the second stroke in 30 days. She has a history of severe aortic valve stenosis, she underwent transcatheter aortic valve replacement therapy, the last 2D echo that was done did not show any embolic source (3) Type 2 diabetes mellitus Qualifiers: Diabetes mellitus jail insulin use: without terminal clerk use Diabetes mellitus complication status: with neurologic complications Diabetes mellitus complication detail: with polyneuropathy Qualified Code(s): E11.42 - Type 2 diabetes mellitus with diabetic polyneuropathy
[2018-06-11 01:57] LABS: CREATINE KINASE MB 2.03 ng/mL (<4.55)
[2018-06-11 02:09] LABS: TROPONIN I 0.127 ng/mL
[2018-06-11 05:19] LABS: APPEARANCE,URINE CLEAR; BILIRUBIN,URINE NEGATIVE (NEGATIVE); COLOR,URINE YELLOW; GLUCOSE, URINE NEGATIVE (NEGATIVE); KETONES,URINE NEGATIVE (NEGATIVE); LEUKOCYTE ESTERASE,URINE NEGATIVE (NEGATIVE); NITRITE,URINE NEGATIVE (NEGATIVE); PROTEIN,URINE 30 mg/dL (NEGATIVE); URINE SPECIFIC GRAVITY 1.013; UROBILINOGEN,URINE NEGATIVE mg/dL (<2.0)
[2018-06-11 08:11] LABS: ABSOLUTE EOSINOPHILS # (AUTO) 0.3 10^3/uL (0.0-0.6); ABSOLUTE LYMPHOCYTES (AUTO) 2.3 10^3/uL (0.5-4.7); ABSOLUTE MONOCYTES (AUTO) 0.3 10^3/uL (0.1-1.4); ABSOLUTE NEUT (AUTO) 4.9 10^3/uL (1.7-8.2); BASOPHILS % (AUTO) 0.3 % (0-2); EOSINOPHILS % (AUTO) 3.4 % (0-6); HEMATOCRIT 30.8 % (36.0-47.0); HEMOGLOBIN 10.3 g/dL (12.0-15.5); LYMPHOCYTES % (AUTO) 29.5 % (13-45); MEAN CORPUSCULAR HEMOGLOBIN 27.7 pg (27.0-33.4); MEAN CORPUSCULAR HGB CONC 33.3 g/dL (32.0-36.0); MEAN CORPUSCULAR VOLUME 83 fl (80-97); MONOCYTES % (AUTO) 4.1 % (3-13); PLATELET COUNT 171 10^3/uL (150-450); RED CELL DISTRIBUTION WIDTH 16.3 % (11.5-14.0); SEGMENTED NEUTROPHILS % (AUTO) 62.7 % (42-78); TOTAL CELLS COUNTED % (AUTO) 100 %; WHITE BLOOD COUNT 7.7 10^3/uL (4.0-10.5)
--- NOTE | 2018-06-11 08:25 | EKG REPORT ---
SEVERITY:- ABNORMAL ECG - SINUS RHYTHM LVH WITH SECONDARY REPOLARIZATION ABNORMALITY : Confirmed by: Rylie Biswas MD 11-Jun-2018 08:24:56
[2018-06-11 08:30] LABS: ALANINE AMINOTRANSFERASE 12 U/L (9-52); ALBUMIN 3.7 g/dL (3.5-5.0); ALKALINE PHOSPHATASE 61 U/L (38-126); ANION GAP 12 (5-19); ASPARTATE AMINO TRANSFERASE 19 U/L (14-36); BILIRUBIN,DIRECT 0.1 mg/dL (0.0-0.4); BILIRUBIN,TOTAL 0.4 mg/dL (0.2-1.3); BLOOD UREA NITROGEN 24 mg/dL (7-20); CALCIUM 9.7 mg/dL (8.4-10.2); CARBON DIOXIDE 26 mmol/L (22-30); CHLORIDE 107 mmol/L (98-107); CHOLESTEROL 158.82 mg/dL (0-200); GLUCOSE 102 mg/dL (75-110); SODIUM 144.7 mmol/L (137-145); TOTAL PROTEIN 6.9 g/dL (6.3-8.2); TRIGLYCERIDES 153 mg/dL (<150)
[2018-06-11 08:41] LABS: DIRECT LDL 84 mg/dL (<100)
[2018-06-11 08:42] LABS: CREATINE KINASE MB 1.85 ng/mL (<4.55); TROPONIN I 0.116 ng/mL
[2018-06-11 08:43] LABS: VLDL CHOLESTEROL 30.6 mg/dL (10-31)
[2018-06-11] MEDS: ASPIRIN/DIPYRIDAMOLE 25-200 MG 1 CAP.SR CPMP.12HR PO SCH (10:15)
[2018-06-11] MEDS: LOSARTAN POTASSIUM 50 MG TABLET PO SCH (10:15)
[2018-06-11] MEDS: ENOXAPARIN SODIUM INJ 30 MG/0.3 ML DISP.SYRIN SUBCUT SCH (10:16)
[2018-06-11] MEDS: METFORMIN HCL 500 MG TABLET PO SCH ×2 (10:16→17:55)
[2018-06-11] MEDS ORDERED: HEPARIN SOD (PORCINE) 1,000 UNIT/ML 10 ML VIAL IV ONE (13:46)
--- NOTE | 2018-06-11 14:02 | PDOC PROGRESS REPORT ---
Subjective Progress Note for:: 06/11/18 Subjective:: Patient was admitted yesterday for the management of CVA, she was seen today by the bedside she is alert Reason For Visit: CVA Physical Exam Vital Signs: Temp Pulse Resp BP Pulse Ox 97.7 F 63 16 146/68 H 100 06/11/18 12:28 06/11/18 12:28 06/11/18 12:28 06/11/18 12:28 06/11/18 12:28 Intake & Output 06/10/18 06/11/18 06/12/18 06:59 06:59 06:59 Intake Total 0 Output Total 200 Balance -200 0 Weight 62.2 kg General appearance: PRESENT: no acute distress Eye exam: PRESENT: PERRLA Respiratory exam: PRESENT: clear to auscultation linda Cardiovascular exam: PRESENT: +S1, +S2 GI/Abdominal exam: PRESENT: soft Neurological exam: PRESENT: alert, motor sensory deficit Results Laboratory Results: 06/11/18 07:19 06/11/18 07:19 06/11/18 06/11/18 06/11/18 04:25 07:19 07:19 WBC 7.7 RBC 3.70 L Hgb 10.3 L Hct 30.8 L MCV 83 MCH 27.7 MCHC 33.3 RDW 16.3 H Plt Count 171 Seg Neutrophils % 62.7 Lymphocytes % 29.5 Monocytes % 4.1 Eosinophils % 3.4 Basophils % 0.3 Absolute Neutrophils 4.9 Absolute Lymphocytes 2.3 Absolute Monocytes 0.3 Absolute Eosinophils 0.3 Absolute Basophils 0.0 Sodium 144.7 Potassium 5.0 Chloride 107 Carbon Dioxide 26 Anion Gap 12 BUN 24 H Creatinine 1.33 H Est GFR ( Amer) 46 L Est GFR (Non-Af Amer) 38 L Glucose 102 Calcium 9.7 Total Bilirubin 0.4 AST 19 ALT 12 Alkaline Phosphatase 61 Total Protein 6.9 Albumin 3.7 Triglycerides 153 H Cholesterol 158.82 LDL Cholesterol Direct 84 VLDL Cholesterol 30.6 HDL Cholesterol 56 Urine Color YELLOW Urine Appearance CLEAR Urine pH 5.0 Ur Specific [place] 1.013 Urine Protein 30 H Urine Glucose (UA) NEGATIVE Urine Ketones NEGATIVE Urine Blood NEGATIVE Urine Nitrite NEGATIVE Ur Leukocyte Esterase NEGATIVE Urine WBC (Auto) 1 Urine RBC (Auto) 1 06/10/18 06/10/18 06/11/18 19:25 19:25 01:11 Creatine Kinase 58 72 CK-MB (CK-2) 2.05 Troponin I 0.121 06/11/18 06/11/18 06/11/18 01:11 07:19 07:19 Creatine Kinase 75 CK-MB (CK-2) 2.03 1.85 Troponin I 0.127 0.116 Impressions: Chest X-Ray 06/10/18 14:16 IMPRESSION: Cardiomegaly without pulmonary edema. Head CT 06/10/18 14:16 IMPRESSION: Mild involutional changes of aging with mild chronic microvascular ischemia and with no acute intracranial imaging findings. EVIDENCE OF ACUTE STROKE: NO. Head MRI 06/10/18 19:09 IMPRESSION: Findings consistent with multiple punctate foci of acute infarct in the left frontal and parietal lobe and centrum semiovale with indeterminant area in the posterior left occipital cortex Patient refused additional imaging The patient's nurse Suzette Hsu was called at 8:25 PM and notified of the findings. Assessment & Plan - Diagnosis (1) Embolic cerebral infarction Qualifiers: Precerebral and cerebral artery: unspecified cerebral artery Qualified Code (s): I63.40 - Cerebral infarction due to embolism of unspecified cerebral artery Is this a current diagnosis for this admission?: Yes Plan: Start IV heparin, low-dose protocol (3) Type 2 diabetes mellitus Qualifiers: Diabetes mellitus computer terminal operator insulin use: without computer terminal operator use Diabetes mellitus complication status: with neurologic complications Diabetes mellitus complication detail: with polyneuropathy Qualified Code(s): E11.42 - Type 2 diabetes mellitus with diabetic polyneuropathy Is this a current diagnosis for this admission?: Yes
[2018-06-11] MEDS: HEPARIN SODIUM,PORCINE/D5W 25,000 UNIT/250 ML RTUINJ IV PRN (15:41)
[2018-06-11 16:09] LABS: ABSOLUTE EOSINOPHILS # (AUTO) 0.2 10^3/uL (0.0-0.6); ABSOLUTE LYMPHOCYTES (AUTO) 2.3 10^3/uL (0.5-4.7); ABSOLUTE MONOCYTES (AUTO) 0.4 10^3/uL (0.1-1.4); ABSOLUTE NEUT (AUTO) 5.6 10^3/uL (1.7-8.2); BASOPHILS % (AUTO) 0.4 % (0-2); EOSINOPHILS % (AUTO) 2.4 % (0-6); HEMATOCRIT 33.7 % (36.0-47.0); HEMOGLOBIN 11.2 g/dL (12.0-15.5); LYMPHOCYTES % (AUTO) 26.8 % (13-45); MEAN CORPUSCULAR HEMOGLOBIN 27.7 pg (27.0-33.4); MEAN CORPUSCULAR HGB CONC 33.4 g/dL (32.0-36.0); MEAN CORPUSCULAR VOLUME 83 fl (80-97); PLATELET COUNT 184 10^3/uL (150-450); RED BLOOD COUNT 4.06 10^6/uL (3.72-5.28); RED CELL DISTRIBUTION WIDTH 16.4 % (11.5-14.0); SEGMENTED NEUTROPHILS % (AUTO) 65.4 % (42-78); TOTAL CELLS COUNTED % (AUTO) 100 %; WHITE BLOOD COUNT 8.5 10^3/uL (4.0-10.5)
[2018-06-11 16:10] LABS: PARTIAL THROMBOPLASTIN TIME 37.1 SEC (23.5-35.8); PROTHROMBIN TIME 13.7 SEC (11.4-15.4)
[2018-06-11] MEDS ORDERED: HEPARIN SOD (PORCINE) 1,000 UNIT/ML 10 ML VIAL IV PRN (16:47)
[2018-06-11] MEDS: ATORVASTATIN CALCIUM 40 MG TABLET PO SCH (21:32)
[2018-06-12 04:13] LABS: APPEARANCE,URINE CLEAR; BILIRUBIN,URINE NEGATIVE (NEGATIVE); COLOR,URINE STRAW; GLUCOSE, URINE NEGATIVE (NEGATIVE); KETONES,URINE NEGATIVE (NEGATIVE); LEUKOCYTE ESTERASE,URINE NEGATIVE (NEGATIVE); NITRITE,URINE NEGATIVE (NEGATIVE); PROTEIN,URINE 30 mg/dL (NEGATIVE); URINE SPECIFIC GRAVITY 1.009; UROBILINOGEN,URINE NEGATIVE mg/dL (<2.0)
[2018-06-12 06:02] LABS: ABSOLUTE EOSINOPHILS # (AUTO) 0.3 10^3/uL (0.0-0.6); ABSOLUTE LYMPHOCYTES (AUTO) 2.8 10^3/uL (0.5-4.7); ABSOLUTE MONOCYTES (AUTO) 0.5 10^3/uL (0.1-1.4); ABSOLUTE NEUT (AUTO) 4.9 10^3/uL (1.7-8.2); BASOPHILS % (AUTO) 0.6 % (0-2); EOSINOPHILS % (AUTO) 3.4 % (0-6); HEMATOCRIT 29.9 % (36.0-47.0); HEMOGLOBIN 10.1 g/dL (12.0-15.5); LYMPHOCYTES % (AUTO) 33.1 % (13-45); MEAN CORPUSCULAR HGB CONC 33.6 g/dL (32.0-36.0); MEAN CORPUSCULAR VOLUME 83 fl (80-97); MONOCYTES % (AUTO) 5.4 % (3-13); PLATELET COUNT 177 10^3/uL (150-450); RED BLOOD COUNT 3.59 10^6/uL (3.72-5.28); RED CELL DISTRIBUTION WIDTH 16.7 % (11.5-14.0); SEGMENTED NEUTROPHILS % (AUTO) 57.5 % (42-78); TOTAL CELLS COUNTED % (AUTO) 100 %; WHITE BLOOD COUNT 8.6 10^3/uL (4.0-10.5)
[2018-06-12 06:49] LABS: ALANINE AMINOTRANSFERASE 12 U/L (9-52); ALBUMIN 3.5 g/dL (3.5-5.0); ALKALINE PHOSPHATASE 58 U/L (38-126); ANION GAP 11 (5-19); ASPARTATE AMINO TRANSFERASE 20 U/L (14-36); BILIRUBIN,DIRECT 0.3 mg/dL (0.0-0.4); BILIRUBIN,TOTAL 0.5 mg/dL (0.2-1.3); BLOOD UREA NITROGEN 25 mg/dL (7-20); CALCIUM 9.7 mg/dL (8.4-10.2); CARBON DIOXIDE 26 mmol/L (22-30); CHLORIDE 106 mmol/L (98-107); GLUCOSE 111 mg/dL (75-110); POTASSIUM 4.6 mmol/L (3.6-5.0); SODIUM 142.6 mmol/L (137-145); TOTAL PROTEIN 6.8 g/dL (6.3-8.2)
[2018-06-12] MEDS: ENOXAPARIN SODIUM INJ 30 MG/0.3 ML DISP.SYRIN SUBCUT SCH (09:05)
[2018-06-12] MEDS: METFORMIN HCL 500 MG TABLET PO SCH ×2 (09:06→17:39)
[2018-06-12] MEDS: LOSARTAN POTASSIUM 50 MG TABLET PO SCH (09:06)
--- NOTE | 2018-06-12 20:09 | PDOC PROGRESS REPORT ---
Subjective Progress Note for:: 06/12/18 Subjective:: Patient seen by the bedside, on anticoagulation with IV heparin Reason For Visit: CVA Physical Exam Vital Signs: Temp Pulse Resp BP Pulse Ox 98.5 F 68 18 146/65 H 99 06/12/18 19:23 06/12/18 19:31 06/12/18 19:31 06/12/18 19:31 06/12/18 19:31 Intake & Output 06/11/18 06/12/18 06/13/18 06:59 06:59 06:59 Intake Total 635 1000 Output Total 200 325 Balance -200 635 675 Weight 62.2 kg 63.1 kg General appearance: PRESENT: no acute distress Eye exam: PRESENT: PERRLA Respiratory exam: PRESENT: clear to auscultation linda Cardiovascular exam: PRESENT: +S1, +S2 GI/Abdominal exam: PRESENT: soft Neurological exam: PRESENT: alert, motor sensory deficit Results Laboratory Results: 06/12/18 05:22 06/12/18 05:22 06/12/18 06/12/18 06/12/18 03:59 05:22 05:22 WBC 8.6 RBC 3.59 L Hgb 10.1 L Hct 29.9 L MCV 83 MCH 28.0 MCHC 33.6 RDW 16.7 H Plt Count 177 Seg Neutrophils % 57.5 Lymphocytes % 33.1 Monocytes % 5.4 Eosinophils % 3.4 Basophils % 0.6 Absolute Neutrophils 4.9 Absolute Lymphocytes 2.8 Absolute Monocytes 0.5 Absolute Eosinophils 0.3 Absolute Basophils 0.0 Sodium 142.6 Potassium 4.6 Chloride 106 Carbon Dioxide 26 Anion Gap 11 BUN 25 H Creatinine 1.31 H Est GFR ( Amer) 47 L Est GFR (Non-Af Amer) 39 L Glucose 111 H Calcium 9.7 Total Bilirubin 0.5 AST 20 ALT 12 Alkaline Phosphatase 58 Total Protein 6.8 Albumin 3.5 Urine Color STRAW Urine Appearance CLEAR Urine pH 5.0 Ur Specific [place] 1.009 Urine Protein 30 H Urine Glucose (UA) NEGATIVE Urine Ketones NEGATIVE Urine Blood MODERATE H Urine Nitrite NEGATIVE Ur Leukocyte Esterase NEGATIVE Urine WBC (Auto) 0 Urine RBC (Auto) 1 06/10/18 06/10/18 06/11/18 19:25 19:25 01:11 Creatine Kinase 58 72 CK-MB (CK-2) 2.05 Troponin I 0.121 06/11/18 06/11/18 06/11/18 01:11 07:19 07:19 Creatine Kinase 75 CK-MB (CK-2) 2.03 1.85 Troponin I 0.127 0.116 Impressions: Chest X-Ray 06/10/18 14:16 IMPRESSION: Cardiomegaly without pulmonary edema. Head CT 06/10/18 14:16 IMPRESSION: Mild involutional changes of aging with mild chronic microvascular ischemia and with no acute intracranial imaging findings. EVIDENCE OF ACUTE STROKE: NO. Head MRI 06/10/18 19:09 IMPRESSION: Findings consistent with multiple punctate foci of acute infarct in the left frontal and parietal lobe and centrum semiovale with indeterminant area in the posterior left occipital cortex Patient refused additional imaging The patient's nurse Suzette Hsu was called at 8:25 PM and notified of the findings. Assessment & Plan - Diagnosis (1) Embolic cerebral infarction Qualifiers: Precerebral and cerebral artery: unspecified cerebral artery Qualified Code (s): I63.40 - Cerebral infarction due to embolism of unspecified cerebral artery Is this a current diagnosis for this admission?: Yes Plan: She is on IV heparin, some improvement in the weakness of the right upper extremities, she may require chronic anticoagulation with Coumadin (2) Dementia Is this a current diagnosis for this admission?: Yes (3) Type 2 diabetes mellitus Qualifiers: Diabetes mellitus mcc insulin use: without mcc use Diabetes mellitus complication status: with neurologic complications Diabetes mellitus complication detail: with polyneuropathy Qualified Code(s): E11.42 - Type 2 diabetes mellitus with diabetic polyneuropathy Is this a current diagnosis for this admission?: Yes
[2018-06-12] MEDS: ATORVASTATIN CALCIUM 40 MG TABLET PO SCH (22:12)
[2018-06-13] MEDS: HEPARIN SODIUM,PORCINE/D5W 25,000 UNIT/250 ML RTUINJ IV PRN (05:23)
[2018-06-13 06:08] LABS: ABSOLUTE EOSINOPHILS # (AUTO) 0.3 10^3/uL (0.0-0.6); ABSOLUTE LYMPHOCYTES (AUTO) 2.5 10^3/uL (0.5-4.7); ABSOLUTE MONOCYTES (AUTO) 0.6 10^3/uL (0.1-1.4); ABSOLUTE NEUT (AUTO) 5.1 10^3/uL (1.7-8.2); BASOPHILS % (AUTO) 0.5 % (0-2); EOSINOPHILS % (AUTO) 3.1 % (0-6); HEMATOCRIT 29.2 % (36.0-47.0); HEMOGLOBIN 9.9 g/dL (12.0-15.5); MEAN CORPUSCULAR HEMOGLOBIN 28.4 pg (27.0-33.4); MEAN CORPUSCULAR HGB CONC 34.1 g/dL (32.0-36.0); MEAN CORPUSCULAR VOLUME 83 fl (80-97); MONOCYTES % (AUTO) 6.7 % (3-13); PLATELET COUNT 167 10^3/uL (150-450); RED CELL DISTRIBUTION WIDTH 16.7 % (11.5-14.0); SEGMENTED NEUTROPHILS % (AUTO) 60.7 % (42-78); TOTAL CELLS COUNTED % (AUTO) 100 %; WHITE BLOOD COUNT 8.4 10^3/uL (4.0-10.5)
[2018-06-13 06:55] LABS: ALANINE AMINOTRANSFERASE 11 U/L (9-52); ALBUMIN 3.6 g/dL (3.5-5.0); ALKALINE PHOSPHATASE 52 U/L (38-126); ANION GAP 12 (5-19); ASPARTATE AMINO TRANSFERASE 21 U/L (14-36); BILIRUBIN,DIRECT 0.2 mg/dL (0.0-0.4); BILIRUBIN,TOTAL 0.4 mg/dL (0.2-1.3); BLOOD UREA NITROGEN 29 mg/dL (7-20); CALCIUM 9.4 mg/dL (8.4-10.2); CARBON DIOXIDE 23 mmol/L (22-30); CHLORIDE 105 mmol/L (98-107); GLUCOSE 123 mg/dL (75-110); POTASSIUM 4.5 mmol/L (3.6-5.0); SODIUM 140.2 mmol/L (137-145); TOTAL PROTEIN 6.7 g/dL (6.3-8.2)
[2018-06-13] MEDS: LOSARTAN POTASSIUM 50 MG TABLET PO SCH (09:20)
[2018-06-13] MEDS: METFORMIN HCL 500 MG TABLET PO SCH ×2 (09:20→17:25)
[2018-06-13] MEDS ORDERED: ACETAMINOPHEN 325 MG TABLET PO PRN (15:32)
--- NOTE | 2018-06-13 19:38 | PDOC PROGRESS REPORT ---
Subjective Progress Note for:: 06/13/18 Subjective:: She was seen by the bedside, presently on IV heparin, she will be started on Coumadin, IV heparin will be discontinued once INR is therapeutic, 2-3 Reason For Visit: CVA Physical Exam Vital Signs: Temp Pulse Resp BP Pulse Ox 97.9 F 64 16 142/58 H 98 06/13/18 16:01 06/13/18 18:59 06/13/18 16:01 06/13/18 16:01 06/13/18 16:01 Intake & Output 06/12/18 06/13/18 06/14/18 06:59 06:59 06:59 Intake Total 635 1423 Output Total 725 Balance 635 698 Weight 63.1 kg 62.9 kg General appearance: PRESENT: no acute distress Eye exam: PRESENT: PERRLA Respiratory exam: PRESENT: clear to auscultation linda Cardiovascular exam: PRESENT: +S1, +S2 GI/Abdominal exam: PRESENT: soft Neurological exam: PRESENT: alert Results Laboratory Results: 06/13/18 05:48 06/13/18 05:48 06/13/18 06/13/18 05:48 05:48 WBC 8.4 RBC 3.50 L Hgb 9.9 L Hct 29.2 L MCV 83 MCH 28.4 MCHC 34.1 RDW 16.7 H Plt Count 167 Seg Neutrophils % 60.7 Lymphocytes % 29.0 Monocytes % 6.7 Eosinophils % 3.1 Basophils % 0.5 Absolute Neutrophils 5.1 Absolute Lymphocytes 2.5 Absolute Monocytes 0.6 Absolute Eosinophils 0.3 Absolute Basophils 0.0 Sodium 140.2 Potassium 4.5 Chloride 105 Carbon Dioxide 23 Anion Gap 12 BUN 29 H Creatinine 1.40 H Est GFR ( Amer) 44 L Est GFR (Non-Af Amer) 36 L Glucose 123 H Calcium 9.4 Total Bilirubin 0.4 AST 21 ALT 11 Alkaline Phosphatase 52 Total Protein 6.7 Albumin 3.6 06/10/18 06/10/18 06/11/18 19:25 19:25 01:11 Creatine Kinase 58 72 CK-MB (CK-2) 2.05 Troponin I 0.121 06/11/18 06/11/18 06/11/18 01:11 07:19 07:19 Creatine Kinase 75 CK-MB (CK-2) 2.03 1.85 Troponin I 0.127 0.116 Impressions: Chest X-Ray 06/10/18 14:16 IMPRESSION: Cardiomegaly without pulmonary edema. Head CT 06/10/18 14:16 IMPRESSION: Mild involutional changes of aging with mild chronic microvascular ischemia and with no acute intracranial imaging findings. EVIDENCE OF ACUTE STROKE: NO. Head MRI 06/10/18 19:09 IMPRESSION: Findings consistent with multiple punctate foci of acute infarct in the left frontal and parietal lobe and centrum semiovale with indeterminant area in the posterior left occipital cortex Patient refused additional imaging The patient's nurse Suzette Hsu was called at 8:25 PM and notified of the findings. Assessment & Plan - Diagnosis (1) Embolic cerebral infarction Qualifiers: Precerebral and cerebral artery: unspecified cerebral artery Qualified Code (s): I63.40 - Cerebral infarction due to embolism of unspecified cerebral artery Is this a current diagnosis for this admission?: Yes Plan: Start Coumadin 5 mg p.o. nightly, stop IV heparin once INR is therapeutic (2) Dementia Is this a current diagnosis for this admission?: Yes (3) Type 2 diabetes mellitus Qualifiers: Diabetes mellitus nursing home insulin use: without nursing home use Diabetes mellitus complication status: with neurologic complications Diabetes mellitus complication detail: with polyneuropathy Qualified Code(s): E11.42 - Type 2 diabetes mellitus with diabetic polyneuropathy Is this a current diagnosis for this admission?: Yes Plan: DC metformin
[2018-06-13 20:20] LABS: PROTHROMBIN TIME 13.7 SEC (11.4-15.4)
[2018-06-13] MEDS: ATORVASTATIN CALCIUM 40 MG TABLET PO SCH (21:14)
[2018-06-13] MEDS: WARFARIN SODIUM 5 MG TABLET PO SCH (21:14)
[2018-06-13] MEDS: SITAGLIPTIN PHOSPHATE 50 MG TABLET PO SCH (21:14)
[2018-06-13 23:32] LABS: APPEARANCE,URINE CLEAR; BILIRUBIN,URINE NEGATIVE (NEGATIVE); COLOR,URINE STRAW; GLUCOSE, URINE NEGATIVE (NEGATIVE); KETONES,URINE NEGATIVE (NEGATIVE); LEUKOCYTE ESTERASE,URINE NEGATIVE (NEGATIVE); NITRITE,URINE NEGATIVE (NEGATIVE); PROTEIN,URINE NEGATIVE (NEGATIVE); URINE SPECIFIC GRAVITY 1.008; UROBILINOGEN,URINE NEGATIVE mg/dL (<2.0)
[2018-06-14 05:08] LABS: HEMATOCRIT 28.1 % (36.0-47.0); HEMOGLOBIN 9.6 g/dL (12.0-15.5); MEAN CORPUSCULAR HEMOGLOBIN 28.7 pg (27.0-33.4); MEAN CORPUSCULAR HGB CONC 34.3 g/dL (32.0-36.0); MEAN CORPUSCULAR VOLUME 84 fl (80-97); PLATELET COUNT 159 10^3/uL (150-450); RED BLOOD COUNT 3.36 10^6/uL (3.72-5.28); RED CELL DISTRIBUTION WIDTH 16.8 % (11.5-14.0); WHITE BLOOD COUNT 8.3 10^3/uL (4.0-10.5)
[2018-06-14 05:13] LABS: INTERNATIONAL RATION (INR) 1.02
[2018-06-14 05:15] LABS: PARTIAL THROMBOPLASTIN TIME 57.4 SEC (23.5-35.8)
[2018-06-14 05:40] LABS: ANION GAP 12 (5-19); BLOOD UREA NITROGEN 36 mg/dL (7-20); CALCIUM 9.1 mg/dL (8.4-10.2); CARBON DIOXIDE 24 mmol/L (22-30); CHLORIDE 103 mmol/L (98-107); GLUCOSE 109 mg/dL (75-110); POTASSIUM 4.3 mmol/L (3.6-5.0); SODIUM 138.5 mmol/L (137-145)
[2018-06-14] MEDS ORDERED: HEPARIN SOD (PORCINE) 1,000 UNIT/ML 10 ML VIAL ONE (06:33)
--- NOTE | 2018-06-14 10:16 | PDOC PROGRESS REPORT ---
Subjective Progress Note for:: 06/14/18 Subjective:: Patient was admitted for the cerebrovascular accident and put on a heparin drip and started on the Coumadin Patient's the daughters at the bedside Patients denied any chest pain denied any shortness of the breath Patient's denied any weakness Reason For Visit: CVA Physical Exam Vital Signs: Temp Pulse Resp BP Pulse Ox 97.8 F 68 18 117/42 L 100 06/14/18 07:28 06/14/18 07:28 06/14/18 07:28 06/14/18 07:28 06/14/18 07:28 Intake & Output 06/13/18 06/14/18 06/15/18 06:59 06:59 05:59 Intake Total 1423 358 Output Total 725 510 Balance 698 -152 Weight 62.9 kg 62.9 kg General appearance: PRESENT: no acute distress, well-developed, well-nourished Head exam: PRESENT: atraumatic, normocephalic Eye exam: PRESENT: conjunctiva pink, EOMI, PERRLA. ABSENT: scleral icterus Ear exam: PRESENT: normal external ear exam Mouth exam: PRESENT: moist, tongue midline Neck exam: PRESENT: full ROM. ABSENT: carotid bruit, JVD, lymphadenopathy, thyromegaly Respiratory exam: PRESENT: clear to auscultation linda Cardiovascular exam: PRESENT: RRR. ABSENT: diastolic murmur, rubs, systolic murmur Pulses: PRESENT: normal dorsalis pedis pul, +2 pedal pulses bilateral Vascular exam: PRESENT: normal capillary refill GI/Abdominal exam: PRESENT: normal bowel sounds, soft. ABSENT: distended, guarding, mass, organolmegaly, rebound, tenderness Rectal exam: PRESENT: deferred Extremities exam: ABSENT: pedal edema Musculoskeletal exam: PRESENT: ambulatory Neurological exam: PRESENT: alert, awake, oriented to person, oriented to place , oriented to time, oriented to situation, CN II-XII grossly intact. ABSENT: motor sensory deficit Psychiatric exam: PRESENT: appropriate affect, normal mood. ABSENT: homicidal ideation, suicidal ideation Skin exam: PRESENT: dry, intact, warm. ABSENT: cyanosis, rash Results Laboratory Results: 06/14/18 04:56 06/14/18 04:56 06/13/18 06/14/18 06/14/18 23:00 04:56 04:56 WBC 8.3 RBC 3.36 L Hgb 9.6 L Hct 28.1 L MCV 84 MCH 28.7 MCHC 34.3 RDW 16.8 H Plt Count 159 Sodium 138.5 Potassium 4.3 Chloride 103 Carbon Dioxide 24 Anion Gap 12 BUN 36 H Creatinine 1.44 H Est GFR ( Amer) 42 L Est GFR (Non-Af Amer) 35 L Glucose 109 Calcium 9.1 Urine Color STRAW Urine Appearance CLEAR Urine pH 5.0 Ur Specific [place] 1.008 Urine Protein NEGATIVE Urine Glucose (UA) NEGATIVE Urine Ketones NEGATIVE Urine Blood NEGATIVE Urine Nitrite NEGATIVE Ur Leukocyte Esterase NEGATIVE Urine WBC (Auto) 0 Urine RBC (Auto) 0 06/10/18 06/10/18 06/11/18 19:25 19:25 01:11 Creatine Kinase 58 72 CK-MB (CK-2) 2.05 Troponin I 0.121 06/11/18 06/11/18 06/11/18 01:11 07:19 07:19 Creatine Kinase 75 CK-MB (CK-2) 2.03 1.85 Troponin I 0.127 0.116 Impressions: Chest X-Ray 06/10/18 14:16 IMPRESSION: Cardiomegaly without pulmonary edema. Head CT 06/10/18 14:16 IMPRESSION: Mild involutional changes of aging with mild chronic microvascular ischemia and with no acute intracranial imaging findings. EVIDENCE OF ACUTE STROKE: NO. Head MRI 06/10/18 19:09 IMPRESSION: Findings consistent with multiple punctate foci of acute infarct in the left frontal and parietal lobe and centrum semiovale with indeterminant area in the posterior left occipital cortex Patient refused additional imaging The patient's nurse Suzette Hsu was called at 8:25 PM and notified of the findings. Assessment & Plan - Diagnosis (1) Embolic cerebral infarction Qualifiers: Laterality of affected vessel: unspecified Is this a current diagnosis for this admission?: Yes Plan: Currently doing better will wait for the INR to therapeutic and stop the heparin drip (2) Chronic kidney disease, stage 3 (moderate) Is this a current diagnosis for this admission?: Yes (3) Type 2 diabetes mellitus Qualifiers: Diabetes mellitus longterm insulin use: without longterm use Diabetes mellitus complication status: with neurologic complications Diabetes mellitus complication detail: with polyneuropathy Qualified Code(s): E11.42 - Type 2 diabetes mellitus with diabetic polyneuropathy Is this a current diagnosis for this admission?: Yes - Time Time Spent with patient: 15-24 minutes Medications reviewed and adjusted accordingly: Yes Anticipated discharge: Other Within: Other - Inpatient Certification Based on my medical assessment, after consideration of the patient's comorbidities, presenting symptoms, or acuity I expect that the services needed warrant INPATIENT care.: Yes I certify that my determination is in accordance with my understanding of Medicare's requirements for reasonable and necessary INPATIENT services [42 CFR 412.3e].: Yes Medical Necessity: Need Close Monitoring Due to Risk of Patient Decompensation Post Hospital Care: D/C Team Cdl Driver 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 discussed with the daughter regarding the patient's current conditions will wait for the INR therapeutic and stop the heparin drip
[2018-06-14] MEDS: SITAGLIPTIN PHOSPHATE 50 MG TABLET PO SCH (10:45)
[2018-06-14] MEDS: LOSARTAN POTASSIUM 50 MG TABLET PO SCH (10:45)
[2018-06-14] MEDS ORDERED: ONDANSETRON HCL INJ/PF 4 MG/2 ML SDV ONE (18:39)
[2018-06-14] MEDS: WARFARIN SODIUM 5 MG TABLET PO SCH (21:16)
[2018-06-14] MEDS: ATORVASTATIN CALCIUM 40 MG TABLET PO SCH (21:16)
[2018-06-14] MEDS: ONDANSETRON HCL INJ/PF 4 MG/2 ML SDV IV PRN (21:53)
[2018-06-14] MEDS: HEPARIN SODIUM,PORCINE/D5W 25,000 UNIT/250 ML RTUINJ IV PRN (22:00)
[2018-06-15] MEDS: ONDANSETRON HCL INJ/PF 4 MG/2 ML SDV IV PRN ×2 (01:58→11:11)
[2018-06-15] MEDS ORDERED: PROMETHAZINE HCL 25 MG SUPP.RECT PR ONE (04:00)
[2018-06-15] MEDS ORDERED: PANTOPRAZOLE SODIUM 40 MG VIAL IV ONE (04:00)
[2018-06-15 06:05] LABS: INTERNATIONAL RATION (INR) 1.09; PROTHROMBIN TIME 14.7 SEC (11.4-15.4)
[2018-06-15 06:07] LABS: PARTIAL THROMBOPLASTIN TIME 106.9 SEC (23.5-35.8)
[2018-06-15] MEDS ORDERED: WARFARIN SODIUM 5 MG TABLET PO SCH (08:04)
--- NOTE | 2018-06-15 09:07 | PDOC PROGRESS REPORT ---
Subjective Progress Note for:: 06/15/18 Subjective:: Patient is complaining of some nauseating yesterday try the Zofran does not work and given Phenergan suppository any helps the patient Patient is currently denied any chest pain denied any shortness of the breath Denied any abdominal pain Patient still currently on a heparin drip as her INR is still 1 Reason For Visit: CVA Physical Exam Vital Signs: Temp Pulse Resp BP Pulse Ox 97.7 F 58 L 16 117/60 100 06/15/18 08:00 06/15/18 08:00 06/15/18 08:00 06/15/18 08:00 06/15/18 08:00 Intake & Output 06/14/18 06/15/18 06/16/18 07:59 06:59 06:59 Intake Total Output Total Balance Weight General appearance: PRESENT: no acute distress, well-developed, well-nourished Head exam: PRESENT: atraumatic, normocephalic Eye exam: PRESENT: conjunctiva pink, EOMI, PERRLA. ABSENT: scleral icterus Ear exam: PRESENT: normal external ear exam Mouth exam: PRESENT: moist, tongue midline Neck exam: PRESENT: full ROM. ABSENT: carotid bruit, JVD, lymphadenopathy, thyromegaly Respiratory exam: PRESENT: clear to auscultation linda Cardiovascular exam: PRESENT: RRR. ABSENT: diastolic murmur, rubs, systolic murmur Pulses: PRESENT: normal dorsalis pedis pul, +2 pedal pulses bilateral Vascular exam: PRESENT: normal capillary refill GI/Abdominal exam: PRESENT: normal bowel sounds, soft. ABSENT: distended, guarding, mass, organolmegaly, rebound, tenderness Rectal exam: PRESENT: deferred Extremities exam: ABSENT: pedal edema Musculoskeletal exam: PRESENT: ambulatory Neurological exam: PRESENT: alert, awake. ABSENT: motor sensory deficit Psychiatric exam: PRESENT: appropriate affect, normal mood. ABSENT: homicidal ideation, suicidal ideation Skin exam: PRESENT: dry, intact, warm. ABSENT: cyanosis, rash Results Laboratory Results: 06/14/18 04:56 06/14/18 04:56 06/10/18 06/10/18 06/11/18 19:25 19:25 01:11 Creatine Kinase 58 72 CK-MB (CK-2) 2.05 Troponin I 0.121 06/11/18 06/11/18 06/11/18 01:11 07:19 07:19 Creatine Kinase 75 CK-MB (CK-2) 2.03 1.85 Troponin I 0.127 0.116 Impressions: Chest X-Ray 06/10/18 14:16 IMPRESSION: Cardiomegaly without pulmonary edema. Head CT 06/10/18 14:16 IMPRESSION: Mild involutional changes of aging with mild chronic microvascular ischemia and with no acute intracranial imaging findings. EVIDENCE OF ACUTE STROKE: NO. Head MRI 06/10/18 19:09 IMPRESSION: Findings consistent with multiple punctate foci of acute infarct in the left frontal and parietal lobe and centrum semiovale with indeterminant area in the posterior left occipital cortex Patient refused additional imaging The patient's nurse Suzette Hsu was called at 8:25 PM and notified of the findings. Assessment & Plan - Diagnosis (1) Embolic cerebral infarction Qualifiers: Laterality of affected vessel: unspecified Is this a current diagnosis for this admission?: Yes Plan: Currently doing better will wait for the INR to therapeutic and stop the heparin drip (2) Chronic kidney disease, stage 3 (moderate) Is this a current diagnosis for this admission?: Yes (3) Type 2 diabetes mellitus Qualifiers: Diabetes mellitus usp insulin use: without usp use Diabetes mellitus complication status: with neurologic complications Diabetes mellitus complication detail: with polyneuropathy Qualified Code(s): E11.42 - Type 2 diabetes mellitus with diabetic polyneuropathy Is this a current diagnosis for this admission?: Yes (4) Nausea Is this a current diagnosis for this admission?: Yes Plan: Possible acid reflux we will put the PPI We will get the x-ray KUB - Time Time Spent with patient: 15-24 minutes Medications reviewed and adjusted accordingly: Yes Anticipated discharge: Other Within: Other - Inpatient Certification Based on my medical assessment, after consideration of the patient's comorbidities, presenting symptoms, or acuity I expect that the services needed warrant INPATIENT care.: Yes I certify that my determination is in accordance with my understanding of Medicare's requirements for reasonable and necessary INPATIENT services [42 CFR 412.3e].: Yes Medical Necessity: Need Close Monitoring Due to Risk of Patient Decompensation 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
[2018-06-15] MEDS ORDERED: PROMETHAZINE HCL 25 MG SUPP.RECT PR PRN (09:10)
--- NOTE | 2018-06-15 10:19 | RADIOLOGY REPORT (SQ) ---
EXAM DESCRIPTION: KUB/ABDOMEN (SINGLE VIEW) COMPLETED DATE/TIME: 06/15/2018 10:03 am REASON FOR STUDY: abdominal pain COMPARISON: None. NUMBER OF VIEWS: One view. TECHNIQUE: Supine radiographic image of the abdomen acquired. LIMITATIONS: None. FINDINGS: BOWEL GAS PATTERN: Normal bowel gas pattern. No dilated loops. Prominent stool throughout the colon and rectum. CALCIFICATIONS: No suspicious calcifications. SOFT TISSUES: No gross mass or suggestion of organomegaly. HARDWARE: None in the abdomen. BONES: No acute fracture. No worrisome bone lesions. OTHER: No other significant finding. IMPRESSION: NO RADIOGRAPHIC EVIDENCE FOR ACUTE ABDOMINAL DISEASE. PROMINENT STOOL, PROBABLE CONSTIP ATION. TECHNICAL DOCUMENTATION: JOB ID: [id number] [employer]- All Rights Reserved Reading location - IP/workstation name: [email or web address]
[2018-06-15] MEDS: LOSARTAN POTASSIUM 50 MG TABLET PO SCH (11:10)
[2018-06-15] MEDS: SITAGLIPTIN PHOSPHATE 50 MG TABLET PO SCH (11:11)
[2018-06-15] MEDS: LANSOPRAZOLE 30 MG TAB.RAP.DR PO SCH (11:16)
[2018-06-15] MEDS: ATORVASTATIN CALCIUM 40 MG TABLET PO SCH (22:25)
[2018-06-15] MEDS: WARFARIN SODIUM 7.5 MG TABLET PO SCH (22:26)
[2018-06-16 04:07] LABS: APPEARANCE,URINE CLEAR; BILIRUBIN,URINE NEGATIVE (NEGATIVE); COLOR,URINE YELLOW; GLUCOSE, URINE NEGATIVE (NEGATIVE); KETONES,URINE NEGATIVE (NEGATIVE); LEUKOCYTE ESTERASE,URINE NEGATIVE (NEGATIVE); NITRITE,URINE NEGATIVE (NEGATIVE); PROTEIN,URINE NEGATIVE (NEGATIVE); URINE SPECIFIC GRAVITY 1.008; UROBILINOGEN,URINE NEGATIVE mg/dL (<2.0)
[2018-06-16 05:08] LABS: HEMATOCRIT 27.9 % (36.0-47.0); HEMOGLOBIN 9.3 g/dL (12.0-15.5); MEAN CORPUSCULAR HGB CONC 33.3 g/dL (32.0-36.0); MEAN CORPUSCULAR VOLUME 84 fl (80-97); PLATELET COUNT 173 10^3/uL (150-450); RED BLOOD COUNT 3.32 10^6/uL (3.72-5.28); RED CELL DISTRIBUTION WIDTH 16.9 % (11.5-14.0); WHITE BLOOD COUNT 7.6 10^3/uL (4.0-10.5)
[2018-06-16 05:10] LABS: INTERNATIONAL RATION (INR) 1.24; PROTHROMBIN TIME 16.2 SEC (11.4-15.4)
[2018-06-16 05:12] LABS: PARTIAL THROMBOPLASTIN TIME 88.3 SEC (23.5-35.8)
[2018-06-16] MEDS: LANSOPRAZOLE 30 MG TAB.RAP.DR PO SCH (05:27)
[2018-06-16 05:28] LABS: ALANINE AMINOTRANSFERASE 21 U/L (9-52); ALBUMIN 3.6 g/dL (3.5-5.0); ALKALINE PHOSPHATASE 57 U/L (38-126); ANION GAP 12 (5-19); ASPARTATE AMINO TRANSFERASE 26 U/L (14-36); BILIRUBIN,DIRECT 0.1 mg/dL (0.0-0.4); BILIRUBIN,TOTAL 0.3 mg/dL (0.2-1.3); BLOOD UREA NITROGEN 40 mg/dL (7-20); CARBON DIOXIDE 22 mmol/L (22-30); CHLORIDE 108 mmol/L (98-107); GLUCOSE 103 mg/dL (75-110); POTASSIUM 4.9 mmol/L (3.6-5.0); SODIUM 142.2 mmol/L (137-145); TOTAL PROTEIN 6.7 g/dL (6.3-8.2)
[2018-06-16] MEDS: LOSARTAN POTASSIUM 50 MG TABLET PO SCH (09:52)
[2018-06-16] MEDS: SITAGLIPTIN PHOSPHATE 50 MG TABLET PO SCH (09:52)
[2018-06-16] MEDS: HEPARIN SODIUM,PORCINE/D5W 25,000 UNIT/250 ML RTUINJ IV PRN (10:18)
--- NOTE | 2018-06-16 19:06 | RADIOLOGY REPORT (SQ) ---
EXAM DESCRIPTION: CTA HEAD COMPLETED DATE/TIME: 06/16/2018 6:42 pm REASON FOR STUDY: CVA ,? ATHEROSCLEROTIC VASCULAR DISEASE COMPARISON: MRI head 06/10/2018 TECHNIQUE: Post IV contrast scanning, thin section axial imaging through the brain to evaluate the a rterial structures. Source and MIP images are saved and reviewed on PACS. Advanced 3D imaging as volume-rendering, MIPs, SSD performed? yes All CT scanners at this facility use dose modulation, iterative reconstruction, and/or weight based d osing when appropriate to reduce radiation dose to as low as reasonably achievable (ALARA). [facility]: Dose Right [facility]: CareDose [facility]: Dose Right [facility]: Teradose 4D [facility]: [employer] CONTRAST TYPE AND DOSE: contrast/concentration: Isovue 300.00 mg/ml; Total Contrast Delivered: 70.0 ml; Total Saline Delivered: 75.0 ml RENAL FUNCTION: BUN 40 creatinine 1.6 LIMITATIONS: None. FINDINGS: [place] OF [place]: The anterior, middle, posterior cerebral arteries are all patent. No ev idence of aneurysm or focal stenosis. POSTERIOR CIRCULATION: The distal vertebral arteries are patent as is the basilar artery. No aneurysm . BRAIN: No gross enhancing lesions as visualized. The superior cerebral hemispheres are not included in the field of view. BONES: Intact as visualized. SINUSES: No fluid or mucosal thickening. OTHER: No other significant finding. IMPRESSION: NO CTA EVIDENCE OF STENOSIS OR ANEURYSM OF THE [place]. TECHNICAL DOCUMENTATION: JOB ID: [id number] Quality ID # [id number]: Final reports with documentation of one or more dose reduction techniques (e.g., Au tomated exposure control, adjustment of the mA and/or kV according to patient size, use of iterative reconstruction technique) 2010 [employer]- All Rights Reserved Reading location - IP/workstation name: [email or web address]
--- NOTE | 2018-06-16 19:16 | RADIOLOGY REPORT (SQ) ---
EXAM DESCRIPTION: CTA NECK COMPLETED DATE/TIME: 06/16/2018 6:42 pm REASON FOR STUDY: CVA ,? ATHEROSCLOROTIC VASCULAR DISEASE COMPARISON: None. TECHNIQUE: Axial dynamic scanning technique with dynamic contrast enhancement through the extra-tractor crane engineer nial carotid and vertebral arteries. Multiplanar reconstruction. 3-D MIPS and Volume-rendered imag es acquired at the workstation and saved to PACS. Images are reviewed in soft tissue, bone, lung w indows. All CT scanners at this facility use dose modulation, iterative reconstruction, and/or weight based d osing when appropriate to reduce radiation dose to as low as reasonably achievable (ALARA). [facility]: Dose Right [facility]: CareDose [facility]: Dose Right [facility]: Teradose 4D [facility]: [employer] CONTRAST TYPE AND DOSE: 70 mL Omnipaque 300- low osmolar. RENAL FUNCTION: BUN 40 creatinine 1.6 LIMITATIONS: None. FINDINGS: AORTIC ARCH: Normal three-vessel origin. Bilateral subclavian arteries are patent. No d issection. RIGHT CAROTIDS: Patent common, internal and external carotid arteries without suggestion of significa nt stenosis or irregular plaque. No dissection. RIGHT VERTEBRAL: Patent. No dissection. LEFT CAROTIDS: Vessels are patent. There is moderate narrowing of the origin of the left internal ca rotid LEFT VERTEBRAL: Patent. No dissection. OTHER: No other significant finding. OTHER: 3-D reconstructions confirm findings. IMPRESSION: There is moderate narrowing of the origin of the left internal carotid artery. COMMENT: Quality ID #[id number]: Measurements of distal internal carotid diameter were used as the denomina tor for stenosis measurement. TECHNICAL DOCUMENTATION: JOB ID: [id number] Quality ID # [id number]: Final reports with documentation of one or more dose reduction techniques (e.g., Au tomated exposure control, adjustment of the mA and/or kV according to patient size, use of iterative reconstruction technique) 2010 [employer]- All Rights Reserved Reading location - IP/workstation name: [email or web address]
--- NOTE | 2018-06-16 19:48 | PDOC PROGRESS REPORT ---
Subjective Progress Note for:: 06/16/18 Subjective:: Patient seen by the bedside, there is mild narrowing at the origin of the left internal carotid artery, this is probably the source of the embolization, patient still on IV heparin, INR not yet therapeutic Reason For Visit: CVA Physical Exam Vital Signs: Temp Pulse Resp BP Pulse Ox 97.9 F 62 17 110/35 L 100 06/16/18 15:31 06/16/18 15:31 06/16/18 15:31 06/16/18 15:31 06/16/18 15:31 Intake & Output 06/15/18 06/16/18 06/17/18 06:59 06:59 06:59 Intake Total 600 474 Output Total 1350 1000 Balance -750 -526 Weight 62 kg General appearance: PRESENT: no acute distress Eye exam: PRESENT: PERRLA Respiratory exam: PRESENT: clear to auscultation linda Cardiovascular exam: PRESENT: +S1, +S2 GI/Abdominal exam: PRESENT: soft Neurological exam: PRESENT: alert, motor sensory deficit - There is right-sided weakness Results Laboratory Results: 06/16/18 03:50 06/16/18 03:50 06/16/18 06/16/18 06/16/18 03:35 03:50 03:50 WBC 7.6 RBC 3.32 L Hgb 9.3 L Hct 27.9 L MCV 84 MCH 28.0 MCHC 33.3 RDW 16.9 H Plt Count 173 Sodium 142.2 Potassium 4.9 Chloride 108 H Carbon Dioxide 22 Anion Gap 12 BUN 40 H Creatinine 1.59 H Est GFR ( Amer) 38 L Est GFR (Non-Af Amer) 31 L Glucose 103 Calcium 9.0 Total Bilirubin 0.3 AST 26 ALT 21 Alkaline Phosphatase 57 Total Protein 6.7 Albumin 3.6 Urine Color YELLOW Urine Appearance CLEAR Urine pH 5.0 Ur Specific [place] 1.008 Urine Protein NEGATIVE Urine Glucose (UA) NEGATIVE Urine Ketones NEGATIVE Urine Blood NEGATIVE Urine Nitrite NEGATIVE Ur Leukocyte Esterase NEGATIVE Urine WBC (Auto) 0 06/10/18 06/10/18 06/11/18 19:25 19:25 01:11 Creatine Kinase 58 72 CK-MB (CK-2) 2.05 Troponin I 0.121 06/11/18 06/11/18 06/11/18 01:11 07:19 07:19 Creatine Kinase 75 CK-MB (CK-2) 2.03 1.85 Troponin I 0.127 0.116 Impressions: Chest X-Ray 06/10/18 14:16 IMPRESSION: Cardiomegaly without pulmonary edema. Head CT 06/10/18 14:16 IMPRESSION: Mild involutional changes of aging with mild chronic microvascular ischemia and with no acute intracranial imaging findings. EVIDENCE OF ACUTE STROKE: NO. Head MRI 06/10/18 19:09 IMPRESSION: Findings consistent with multiple punctate foci of acute infarct in the left frontal and parietal lobe and centrum semiovale with indeterminant area in the posterior left occipital cortex Patient refused additional imaging The patient's nurse Suzette Hsu was called at 8:25 PM and notified of the findings. KUB X-Ray 06/15/18 00:00 IMPRESSION: NO RADIOGRAPHIC EVIDENCE FOR ACUTE ABDOMINAL DISEASE. PROMINENT STOOL, PROBABLE CONSTIPATION. Head CTA 06/16/18 00:00 IMPRESSION: NO CTA EVIDENCE OF STENOSIS OR ANEURYSM OF THE [place]. Neck CTA 06/16/18 00:00 IMPRESSION: There is moderate narrowing of the origin of the left internal carotid artery. 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
[2018-06-16] MEDS: WARFARIN SODIUM 7.5 MG TABLET PO SCH (21:25)
[2018-06-16] MEDS: ATORVASTATIN CALCIUM 40 MG TABLET PO SCH (21:26)
[2018-06-17 05:19] LABS: INTERNATIONAL RATION (INR) 1.62
[2018-06-17 05:21] LABS: PARTIAL THROMBOPLASTIN TIME 113.8 SEC (23.5-35.8)
[2018-06-17 05:36] LABS: ANION GAP 10 (5-19); BLOOD UREA NITROGEN 39 mg/dL (7-20); CALCIUM 9.1 mg/dL (8.4-10.2); CARBON DIOXIDE 23 mmol/L (22-30); CHLORIDE 108 mmol/L (98-107); GLUCOSE 113 mg/dL (75-110); POTASSIUM 4.8 mmol/L (3.6-5.0); SODIUM 141.4 mmol/L (137-145)
[2018-06-17] MEDS: LANSOPRAZOLE 30 MG TAB.RAP.DR PO SCH (06:29)
[2018-06-17] MEDS: LOSARTAN POTASSIUM 50 MG TABLET PO SCH (09:19)
[2018-06-17] MEDS: SITAGLIPTIN PHOSPHATE 50 MG TABLET PO SCH (09:19)
[2018-06-17] MEDS: HEPARIN SODIUM,PORCINE/D5W 25,000 UNIT/250 ML RTUINJ IV PRN (14:53)
--- NOTE | 2018-06-17 19:46 | PDOC PROGRESS REPORT ---
Subjective Progress Note for:: 06/17/18 Subjective:: Patient was seen by the bedside, INR subtherapeutic still on IV heparin Reason For Visit: CVA Physical Exam Vital Signs: Temp Pulse Resp BP Pulse Ox 97.7 F 58 L 13 127/60 H 99 06/17/18 16:22 06/17/18 16:22 06/17/18 16:22 06/17/18 16:22 06/17/18 16:22 Intake & Output 06/16/18 06/17/18 06/18/18 06:59 06:59 06:59 Intake Total 600 574 570 Output Total 1350 1000 300 Balance -750 -426 270 Weight 62 kg 60.6 kg General appearance: PRESENT: no acute distress Eye exam: PRESENT: PERRLA Respiratory exam: PRESENT: clear to auscultation linda Cardiovascular exam: PRESENT: +S1, +S2 GI/Abdominal exam: PRESENT: soft Neurological exam: PRESENT: alert Results Laboratory Results: 06/16/18 03:50 06/17/18 04:20 06/17/18 06/17/18 04:20 12:22 Sodium 141.4 Potassium 4.8 Chloride 108 H Carbon Dioxide 23 Anion Gap 10 BUN 39 H Creatinine 1.38 H Est GFR ( Amer) 44 L Est GFR (Non-Af Amer) 37 L Glucose 113 H Calcium 9.1 Stool Occult Blood NEGATIVE 06/10/18 06/10/18 06/11/18 19:25 19:25 01:11 Creatine Kinase 58 72 CK-MB (CK-2) 2.05 Troponin I 0.121 06/11/18 06/11/18 06/11/18 01:11 07:19 07:19 Creatine Kinase 75 CK-MB (CK-2) 2.03 1.85 Troponin I 0.127 0.116 Impressions: Chest X-Ray 06/10/18 14:16 IMPRESSION: Cardiomegaly without pulmonary edema. Head CT 06/10/18 14:16 IMPRESSION: Mild involutional changes of aging with mild chronic microvascular ischemia and with no acute intracranial imaging findings. EVIDENCE OF ACUTE STROKE: NO. Head MRI 06/10/18 19:09 IMPRESSION: Findings consistent with multiple punctate foci of acute infarct in the left frontal and parietal lobe and centrum semiovale with indeterminant area in the posterior left occipital cortex Patient refused additional imaging The patient's nurse Suzette Hsu was called at 8:25 PM and notified of the findings. KUB X-Ray 06/15/18 00:00 IMPRESSION: NO RADIOGRAPHIC EVIDENCE FOR ACUTE ABDOMINAL DISEASE. PROMINENT STOOL, PROBABLE CONSTIPATION. Head CTA 06/16/18 00:00 IMPRESSION: NO CTA EVIDENCE OF STENOSIS OR ANEURYSM OF THE [place]. Neck CTA 06/16/18 00:00 IMPRESSION: There is moderate narrowing of the origin of the left internal carotid artery. Assessment & Plan - Diagnosis (1) Embolic cerebral infarction Qualifiers: Precerebral and cerebral artery: unspecified cerebral artery Qualified Code (s): I63.40 - Cerebral infarction due to embolism of unspecified cerebral artery Is this a current diagnosis for this admission?: Yes (2) Dementia Is this a current diagnosis for this admission?: Yes (3) Type 2 diabetes mellitus Qualifiers: Diabetes mellitus halfway insulin use: without halfway use Diabetes mellitus complication status: with neurologic complications Diabetes mellitus complication detail: with polyneuropathy Qualified Code(s): E11.42 - Type 2 diabetes mellitus with diabetic polyneuropathy Is this a current diagnosis for this admission?: Yes (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
[2018-06-17] MEDS: ATORVASTATIN CALCIUM 40 MG TABLET PO SCH (21:38)
[2018-06-17] MEDS: WARFARIN SODIUM 7.5 MG TABLET PO SCH (21:38)
[2018-06-18 05:09] LABS: HEMATOCRIT 30.1 % (36.0-47.0); HEMOGLOBIN 10.2 g/dL (12.0-15.5); MEAN CORPUSCULAR HEMOGLOBIN 28.6 pg (27.0-33.4); MEAN CORPUSCULAR HGB CONC 33.9 g/dL (32.0-36.0); MEAN CORPUSCULAR VOLUME 84 fl (80-97); PLATELET COUNT 183 10^3/uL (150-450); RED BLOOD COUNT 3.57 10^6/uL (3.72-5.28); RED CELL DISTRIBUTION WIDTH 16.5 % (11.5-14.0); WHITE BLOOD COUNT 7.3 10^3/uL (4.0-10.5)
[2018-06-18 05:15] LABS: INTERNATIONAL RATION (INR) 2.02; PROTHROMBIN TIME 23.8 SEC (11.4-15.4)
[2018-06-18] MEDS: LANSOPRAZOLE 30 MG TAB.RAP.DR PO SCH (05:24)
[2018-06-18 05:33] LABS: ANION GAP 13 (5-19); BLOOD UREA NITROGEN 34 mg/dL (7-20); CALCIUM 9.5 mg/dL (8.4-10.2); CARBON DIOXIDE 24 mmol/L (22-30); CHLORIDE 107 mmol/L (98-107); GLUCOSE 118 mg/dL (75-110); POTASSIUM 5.2 mmol/L (3.6-5.0); SODIUM 144.4 mmol/L (137-145)
[2018-06-18] MEDS: SITAGLIPTIN PHOSPHATE 50 MG TABLET PO SCH (10:05)
[2018-06-18] MEDS: LOSARTAN POTASSIUM 50 MG TABLET PO SCH (10:05)
--- NOTE | 2018-06-18 17:43 | PDOC PROGRESS REPORT ---
Subjective Progress Note for:: 06/18/18 Subjective:: Patient seen by the bedside, INR is therapeutic, discontinue heparin Reason For Visit: CVA Physical Exam Vital Signs: Temp Pulse Resp BP Pulse Ox 97.5 F 61 15 159/56 H 100 06/18/18 15:28 06/18/18 15:28 06/18/18 15:28 06/18/18 15:28 06/18/18 15:28 Intake & Output 06/17/18 06/18/18 06/19/18 06:59 06:59 06:59 Intake Total 574 570 678 Output Total 1000 850 600 Balance -426 -280 78 Weight 60.6 kg 59.1 kg General appearance: PRESENT: no acute distress Eye exam: PRESENT: PERRLA Respiratory exam: PRESENT: clear to auscultation linda Cardiovascular exam: PRESENT: +S1, +S2 GI/Abdominal exam: PRESENT: soft Neurological exam: PRESENT: alert Results Laboratory Results: 06/18/18 04:12 06/18/18 04:12 06/18/18 06/18/18 04:12 04:12 WBC 7.3 RBC 3.57 L Hgb 10.2 L Hct 30.1 L MCV 84 MCH 28.6 MCHC 33.9 RDW 16.5 H Plt Count 183 Sodium 144.4 Potassium 5.2 H Chloride 107 Carbon Dioxide 24 Anion Gap 13 BUN 34 H Creatinine 1.52 H Est GFR ( Amer) 40 L Est GFR (Non-Af Amer) 33 L Glucose 118 H Calcium 9.5 06/10/18 06/10/18 06/11/18 19:25 19:25 01:11 Creatine Kinase 58 72 CK-MB (CK-2) 2.05 Troponin I 0.121 06/11/18 06/11/18 06/11/18 01:11 07:19 07:19 Creatine Kinase 75 CK-MB (CK-2) 2.03 1.85 Troponin I 0.127 0.116 Impressions: Chest X-Ray 06/10/18 14:16 IMPRESSION: Cardiomegaly without pulmonary edema. Head CT 06/10/18 14:16 IMPRESSION: Mild involutional changes of aging with mild chronic microvascular ischemia and with no acute intracranial imaging findings. EVIDENCE OF ACUTE STROKE: NO. Head MRI 06/10/18 19:09 IMPRESSION: Findings consistent with multiple punctate foci of acute infarct in the left frontal and parietal lobe and centrum semiovale with indeterminant area in the posterior left occipital cortex Patient refused additional imaging The patient's nurse Suzette Hsu was called at 8:25 PM and notified of the findings. KUB X-Ray 06/15/18 00:00 IMPRESSION: NO RADIOGRAPHIC EVIDENCE FOR ACUTE ABDOMINAL DISEASE. PROMINENT STOOL, PROBABLE CONSTIPATION. Head CTA 06/16/18 00:00 IMPRESSION: NO CTA EVIDENCE OF STENOSIS OR ANEURYSM OF THE [place]. Neck CTA 06/16/18 00:00 IMPRESSION: There is moderate narrowing of the origin of the left internal carotid artery. Assessment & Plan - Diagnosis (1) Embolic cerebral infarction Qualifiers: Precerebral and cerebral artery: unspecified cerebral artery Qualified Code (s): I63.40 - Cerebral infarction due to embolism of unspecified cerebral artery Is this a current diagnosis for this admission?: Yes (2) Dementia Is this a current diagnosis for this admission?: Yes (3) Type 2 diabetes mellitus Qualifiers: Diabetes mellitus half-way insulin use: without half-way use Diabetes mellitus complication status: with neurologic complications Diabetes mellitus complication detail: with polyneuropathy Qualified Code(s): E11.42 - Type 2 diabetes mellitus with diabetic polyneuropathy Is this a current diagnosis for this admission?: Yes (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
[2018-06-18] MEDS: ATORVASTATIN CALCIUM 40 MG TABLET PO SCH (21:35)
[2018-06-18] MEDS: WARFARIN SODIUM 7.5 MG TABLET PO SCH (21:35)
[2018-06-19] MEDS: LANSOPRAZOLE 30 MG TAB.RAP.DR PO SCH (05:15)
[2018-06-19] MEDS: LOSARTAN POTASSIUM 50 MG TABLET PO SCH (10:22)
[2018-06-19] MEDS: SITAGLIPTIN PHOSPHATE 50 MG TABLET PO SCH (10:22)
--- NOTE | 2018-06-19 20:06 | PDOC TRANSFER SUMMARY ---
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 Is this a current diagnosis for this admission?: Yes (3) Dementia Is this a current diagnosis for this admission?: Yes (4) Type 2 diabetes mellitus Is this a current diagnosis for this admission?: Yes - Additional Information Home Medications: Atorvastatin Calcium [Lipitor 40 mg Tablet] 40 mg PO DAILY 06/10/18 Losartan Potassium [Cozaar 100 mg Tablet] 100 mg PO DAILY 06/10/18 Acetaminophen [Tylenol 325 mg Tablet] 325 mg PO Q4HP PRN tablet 06/19/18 Sitagliptin Phosphate [Januvia 50 mg Tablet] 50 mg PO DAILY tablet 06/19/18 Warfarin Sodium [Coumadin 7.5 mg Tablet] 7.5 mg PO QHS #0 tablet 06/19/18 History of Present Illness Admission Date/PCP: 06/10/18 16:48 ADRIANNA GÓMEZ MD History of Present Illness: TORRI ARCEO is a 83 year old female, she was admitted recently in this hospital May 13, 2018 when she sustained a stroke with weakness of the right upper extremity predominantly, [facility] 2018 [facility] was [facility] , she regained full function of right upper extremities. She was brought to the emergency room by her daughter for evaluation of weakness of the right upper extremity, the daughter said she experienced weakness of the right upper extremities yesterday but it seems to resolved, the symptoms recur again this afternoon, she is not able to hold onto objects, there was also associated facial droop with slurred speech. In the emergency room, she was evaluated CT head was done, it was negative for any acute CVA. The symptoms she was manifesting is consistent with CVA though the CT head was negative for CVA, she is also not a candidate for TPA administration because of the timeframe the symptoms started, it is out of the 3-hour timeframe allow for TPA administration. MRI of the brain was done subsequently, it demonstrated multiple small punctate foci of restricted diffusion in the left frontal, parietal cortex as well as the centrum semiovale there is also additional involvement of the occipital cortex this is consistent with multiple acute infarct of the left frontal, parietal and occiput, the stroke looks embolic, EKG did not show any atrial fibrillation, she is presently on Aggrenox, suggesting that patient was still manifesting CVA on Aggrenox, the last time she was in the hospital for CVA she had carotid Doppler done, this was negative for any significant lesion, the potential source of the embolism is not clear, it is probably reasonable to treat with IV heparin low-dose because she seems to has failed treatment with Aggrenox which is aspirin combine with dipyridamole. Hospital Course Hospital Course: Patient was admitted for the management of embolic stroke Involving the left brain from the frontal lobe to the occipital lobe.MRA of the brain demonstrated stenosis of the left internal carotid artery, this site was felt to be the source of the embolization. 2D echo that was done did not show any thrombosis, though it was a transthoracic echo, a transesophageal echo is more sensitive in detecting embolus the left chambers, she has no history of atrial fibrillation. Before this admission she was on Aggrenox, she was taken off Aggrenox and treated with intravenous heparin this was subsequently transitioned to p.o. Coumadin Physical Exam Vital Signs: Temp Pulse Resp BP Pulse Ox 97.7 F 58 L 14 140/49 H 100 06/19/18 16:44 06/19/18 16:44 06/19/18 16:44 06/19/18 16:44 06/19/18 16:44 Intake & Output 06/18/18 06/19/18 06/20/18 06:59 06:59 06:59 Intake Total 570 1200 577 Output Total 850 1325 Balance -280 -125 577 Weight 59.1 kg 60 kg General appearance: PRESENT: no acute distress Head exam: PRESENT: atraumatic Eye exam: PRESENT: PERRLA Ear exam: PRESENT: normal external ear exam Respiratory exam: PRESENT: clear to auscultation linda Cardiovascular exam: PRESENT: +S1, +S2 Vascular exam: PRESENT: normal capillary refill GI/Abdominal exam: PRESENT: normal bowel sounds, soft Rectal exam: PRESENT: deferred Extremities exam: PRESENT: full ROM Neurological exam: PRESENT: alert, motor sensory deficit - Right-sided weakness Psychiatric exam: PRESENT: appropriate affect, normal mood Skin exam: PRESENT: dry, intact, warm Results Laboratory Results: 06/18/18 04:12 06/18/18 04:12 06/18/18 20:50 Stool Occult Blood NEGATIVE 06/10/18 06/10/18 06/11/18 19:25 19:25 01:11 Creatine Kinase 58 72 CK-MB (CK-2) 2.05 Troponin I 0.121 06/11/18 06/11/18 06/11/18 01:11 07:19 07:19 Creatine Kinase 75 CK-MB (CK-2) 2.03 1.85 Troponin I 0.127 0.116 Impressions: Chest X-Ray 06/10/18 14:16 IMPRESSION: Cardiomegaly without pulmonary edema. Head CT 06/10/18 14:16 IMPRESSION: Mild involutional changes of aging with mild chronic microvascular ischemia and with no acute intracranial imaging findings. EVIDENCE OF ACUTE STROKE: NO. Head MRI 06/10/18 19:09 IMPRESSION: Findings consistent with multiple punctate foci of acute infarct in the left frontal and parietal lobe and centrum semiovale with indeterminant area in the posterior left occipital cortex Patient refused additional imaging The patient's nurse Suzette Hsu was called at 8:25 PM and notified of the findings. KUB X-Ray 06/15/18 00:00 IMPRESSION: NO RADIOGRAPHIC EVIDENCE FOR ACUTE ABDOMINAL DISEASE. PROMINENT STOOL, PROBABLE CONSTIPATION. Head CTA 06/16/18 00:00 IMPRESSION: NO CTA EVIDENCE OF STENOSIS OR ANEURYSM OF [place]. Neck CTA 06/16/18 00:00 IMPRESSION: There is moderate narrowing of the origin of the left internal carotid artery. Transfer Plan - Disposition Transfer Plan: She is to have PT/INR check every week for 1 month then monthly Qualifiers - * PATIENT BEING DISCHARGED WITH ANY OF THE FOLLOWING DIAGNOSIS: No
--- NOTE | 2018-06-19 20:08 | PDOC PROGRESS REPORT ---
Subjective Progress Note for:: 06/19/18 Subjective:: Patient seen by the bedside, there is a bed now available for transfer Reason For Visit: CVA Physical Exam Vital Signs: Temp Pulse Resp BP Pulse Ox 97.7 F 61 14 140/49 H 100 06/19/18 16:44 06/19/18 19:00 06/19/18 16:44 06/19/18 16:44 06/19/18 16:44 Intake & Output 06/18/18 06/19/18 06/20/18 06:59 06:59 06:59 Intake Total 570 1200 577 Output Total 850 1325 Balance -280 -125 577 Weight 59.1 kg 60 kg General appearance: PRESENT: no acute distress Eye exam: PRESENT: PERRLA Respiratory exam: PRESENT: clear to auscultation linda Cardiovascular exam: PRESENT: +S1, +S2 GI/Abdominal exam: PRESENT: soft Neurological exam: PRESENT: alert Results Laboratory Results: 06/18/18 04:12 06/18/18 04:12 06/18/18 20:50 Stool Occult Blood NEGATIVE 06/10/18 06/10/18 06/11/18 19:25 19:25 01:11 Creatine Kinase 58 72 CK-MB (CK-2) 2.05 Troponin I 0.121 06/11/18 06/11/18 06/11/18 01:11 07:19 07:19 Creatine Kinase 75 CK-MB (CK-2) 2.03 1.85 Troponin I 0.127 0.116 Impressions: Chest X-Ray 06/10/18 14:16 IMPRESSION: Cardiomegaly without pulmonary edema. Head CT 06/10/18 14:16 IMPRESSION: Mild involutional changes of aging with mild chronic microvascular ischemia and with no acute intracranial imaging findings. EVIDENCE OF ACUTE STROKE: NO. Head MRI 06/10/18 19:09 IMPRESSION: Findings consistent with multiple punctate foci of acute infarct in the left frontal and parietal lobe and centrum semiovale with indeterminant area in the posterior left occipital cortex Patient refused additional imaging The patient's nurse Suzette Hsu was called at 8:25 PM and notified of the findings. KUB X-Ray 06/15/18 00:00 IMPRESSION: NO RADIOGRAPHIC EVIDENCE FOR ACUTE ABDOMINAL DISEASE. PROMINENT STOOL, PROBABLE CONSTIPATION. Head CTA 06/16/18 00:00 IMPRESSION: NO CTA EVIDENCE OF STENOSIS OR ANEURYSM OF [place]. Neck CTA 06/16/18 00:00 IMPRESSION: There is moderate narrowing of the origin of the left internal carotid artery. 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
[2018-06-19 20:29] LABS: INTERNATIONAL RATION (INR) 2.37
[2018-06-19] MEDS: WARFARIN SODIUM 7.5 MG TABLET PO SCH (22:19)
[2018-06-19] MEDS: ATORVASTATIN CALCIUM 40 MG TABLET PO SCH (22:19)
[2018-06-20 04:45] LABS: MEAN CORPUSCULAR HEMOGLOBIN 28.9 pg (27.0-33.4); MEAN CORPUSCULAR HGB CONC 34.4 g/dL (32.0-36.0); MEAN CORPUSCULAR VOLUME 84 fl (80-97); PLATELET COUNT 198 10^3/uL (150-450); RED BLOOD COUNT 3.46 10^6/uL (3.72-5.28); WHITE BLOOD COUNT 7.7 10^3/uL (4.0-10.5)
[2018-06-20] MEDS: LANSOPRAZOLE 30 MG TAB.RAP.DR PO SCH (06:39)
[2018-06-20] MEDS: LOSARTAN POTASSIUM 50 MG TABLET PO SCH (10:08)
[2018-06-20] MEDS: SITAGLIPTIN PHOSPHATE 50 MG TABLET PO SCH (10:08)
[2018-06-20 15:31] VITALS: BP 127/52
== END 2018-06-20 17:00 | DRG 65 ==
LOC: ER 14:13 → EH 16:48 → 3W 20:24
PROVIDERS: ADMIT Internal Medicine; ATTEND Internal Medicine
DX: I63.132 Cerebral infarction due to embolism of left carotid artery (principal); G81.91 Hemiplegia, unspecified affecting right dominant side; F03.90 Unspecified dementia, unspecified severity, without behavioral disturbance, psychotic disturbance, mood disturbance, and anxiety; E78.00 Pure hypercholesterolemia, unspecified; M19.90 Unspecified osteoarthritis, unspecified site; D64.9 Anemia, unspecified; E11.42 Type 2 diabetes mellitus with diabetic polyneuropathy; I12.9 Hypertensive chronic kidney disease with stage 1 through stage 4 chronic kidney disease, or unspecified chronic kidney disease; N18.3 Chronic kidney disease, stage 3 (moderate); E11.22 Type 2 diabetes mellitus with diabetic chronic kidney disease; R79.1 Abnormal coagulation profile; R29.810 Facial weakness; R47.81 Slurred speech; Z79.899 Other long term (current) drug therapy; Z90.710 Acquired absence of both cervix and uterus; Z95.2 Presence of prosthetic heart valve
CPT/HCPCS: 36415; 70450; 70496; 70498; 70551; 71045; 74018; 80048; 80053; 80061; 80076; 81001; 82272; 82550; 82553; 83036; 84484; 85025; 85027; 85610; 85730; 87493; 93005; 93010; 99285; G8978-GP; G8979-GP; G8987-GO; G8988-GO; G9168-GN; G9169-GN; G9170-GN; J1644; J1650; J2405; J3490; S0164